=== PATIENT | male | born 1940 | race Caucasian/White ===

== ENCOUNTER 2016-11-13 07:11 | Inpatient (IN) | payer MEDICARE, OTHER ==
[~2016-11-13] VITALS: Ht 177.8 cm; Wt 79.8 kg
[2016-11-13] VITALS (13 sets, daily range): BP systolic 99–146; BP diastolic 47–93; PULSE 66–93; RESP 10–20; O2SAT 92–99
[2016-11-13] MEDS ORDERED: HYDROmorphone 1 mg/mL Inj IVPUSH ONE (07:40)
[2016-11-13] MEDS ORDERED: Ondansetron 2 mg/mL 2 mL Inj IVPUSH PRN ×3 (07:40→16:55)
[2016-11-13] MEDS ORDERED: HYDROmorphone 1 mg/mL Inj IVPUSH PRN ×2 (07:40→16:55)
--- NOTE | 2016-11-13 07:40 | ED.REPORT ---
HPI-General Illness Date of Service November 13, 2016 ED Provider: Leslie Ovalle MD The patient is a 76 year old male w/ a hx of emphysema and COPD who presents to the ED due to right hip pain after a ground level fall 5 hrs [employer]. The pt was in his room at the [facility] this morning. He got up to use the bathroom at 0300, stood up from the toilet, and fell onto the bathroom floor. He was unable to make it back to bed and laid on the floor for 3 hrs. He took his normal dosage of Eliquis this morning. He denies LOC, dizziness, and numbness. Nursing Notes Stated Complaint: FALL Chief Complaint: Extremity Trauma Nursing Notes Reviewed: Yes Allergies: Coded Allergies: No Known Allergies (Unverified , 11/13/16) General Time Seen by MD: 07:37 Chief Complaint Other (right hip pain) Hx Obtained From: Patient Arrived By: Ambulance Sudden in Onset?: Yes Onset Occurred: 5 - 8 hours ago Symptom Duration: Since onset Caused by: Fall on ground Location: : Hip right Quality: Painful Severity: Current: Mild Recent Healthcare: No recent doctor visit, No recent hospitalization Similar Sx Previous: No Past Medical History Past Medical History emphysema Reports: COPD Past Surgical History knee and shoulder replacement Review of Systems Full Review of Systems Musculoskeletal: Reports: Joint pain (right hip), Joint swelling Neurologic: Denies: Change LOC, Dizziness, Lightheaded, Numbness Complete sys rev & neg: except as marked. Physical Exam Vital Signs Vital Signs Date Time Temp Pulse Resp B/P Pulse Ox O2 Delivery O2 Flow Rate FiO2 11/13/16 10:03 84 17 111/47 99 Nasal Cannula 2 11/13/16 07:56 92 14 115/62 95 Room Air 11/13/16 07:14 36.8 93 10 124/59 94 Room Air Initial VS: Reviewed Head / Eyes: Atraumatic, Normocephalic, PERRL ENT: Mucous membranes moist, Conjunctiva normal Neck: Supple, Non-tender Respiratory: Breath sounds normal, Clear to auscultation, No respiratory distress Cardiovascular: Regular rate & rhythm, Heart sounds normal, Intact distal pulses Abdomen / GI: Soft, Non-tender, No guarding, No rebound, No distention Right Knee: Positive: Tenderness present... right knee surgery right leg is externally rotated and foreshortened good cap refill poor distal pulses bilaterally w/ chronic venous stasis changes Skin: Atraumatic, Warm, Dry no bruising Interpretation & Diagnostics Interpretation & Diagnostics: HIP/PELVIS X-RAY IMPRESSION: Comminuted right basicervical femoral neck fracture Dictated by: Andrew Velazquez M.D. on 11/13/2016 at 8:49 Approved by: Andrew Velazquez M.D. on 11/13/2016 at 8:51 Lab Results Interpretation Result Diagram: 11/13/16 0803 11/13/16 0803 Test 11/13/16 08:03 11/13/16 09:50 White Blood Count 15.2th/mm3 (3.8-10.1) Red Blood Count 4.63mil/mm3 (4.40-5.80) Hemoglobin 14.9g/dL (13.8-17.2) Hematocrit 42.6% (41.0-50.0) Mean Corpuscular Volume 92.0fL (81-100) Mean Corpuscular Hemoglobin 32.2pg (27.0-35.0) Mean Corpuscular Hemoglobin Concent 35.0% (32.0-37.0) Red Cell Distribution Width 13.3% (12.3-15.4) Platelet Count 249bil/L (150-400) Neutrophils (%) (Auto) 84.7% (40-74) Lymphocytes (%) (Auto) 6.4% (14-46) Monocytes (%) (Auto) 7.9% (4-12) Eosinophils (%) (Auto) 0.4% (0-5) Basophils (%) (Auto) 0.3% (0-3) Prothrombin Time 10.9sec (8.1-12.5) Prothromb Time International Ratio 1.02ratio Sodium Level 135mEq/L (134-144) Potassium Level 5.1mEq/L (3.5-5.2) Chloride Level 96mEq/L (97-108) Carbon Dioxide Level 24mmol/L (18-29) Blood Urea Nitrogen 9mg/dL (8-27) Creatinine 0.57mg/dL (0.76-1.27) Estimat Glomerular Filtration Rate 149mL/min (>59) Glucose Level 100mg/dL (60-99) Calcium Level 8.8mg/dL (8.5-10.1) Total Bilirubin 0.4mg/dL (0.0-1.2) Aspartate Amino Transf (AST/SGOT) 23U/L (0-50) Alanine Aminotransferase (ALT/SGPT) 18U/L (0-44) Alkaline Phosphatase 64U/L (25-160) Total Protein 6.8g/dL (6.4-8.4) Albumin 3.5g/dL (3.4-5.0) Alcohols 25mg/dL (0-10) Urine Color Yellow (YELLOW) Urine Appearance Hazy (CLEAR,HAZY) Urine pH 6.0 (5.0-8.0) Urine Specific [place] 1.010 (1.003-1.035) Urine Protein Negativemg/dL (NEG,TRACE) Urine Glucose (UA) Negativemg/dL (NEGATIVE) Urine Ketones Tracemg/dL (NEGATIVE) Urine Occult Blood Negative (NEGATIVE) Urine Nitrite Negative (NEGATIVE) Urine Bilirubin Negative (NEGATIVE) Urine Urobilinogen Normalmg/dL (NORMAL) Urine Leukocyte Esterase Negative (NEGATIVE) Urine RBC 0-2/hpf (0-2) Urine WBC 0-5/hpf (0-5) Urine Epithelial Cells Occasional/hpf (NONE-MOD) Urine Crystals None seen (NONE SEEN) Urine Bacteria None/hpf (NONE-FEW) Urine Hyaline Casts None/lpf (NONE) Urine Granular Casts None seen (NONE SEEN) Urine Waxy Casts None seen (NONE SEEN) Urine Red Blood Cell Casts None seen (NONE SEEN) Urine White Blood Cell Casts None seen (NONE SEEN) Urine Mucus None seen (None Seen) Urine Trichomonas None seen (NONE SEEN) Urine Yeast None (NONE SEEN) Urinalysis Comment None Urine Culture Reflexed Not indicated Hold Urine Received (Received) ECG Interpretation ECG Interpretation: Abnormal R-wave progression no comparison Time: 10:15 Interpreted by: ED physician Normal ECG Interpretation: Normal sinus rhythm (rate 81) X-Ray Chest Interpretation Chest Xray Interpretation: IMPRESSION: Chronic interstitial disease and scarring. No acute consolidation. Dictated by: Andrew Velazquez M.D. on 11/13/2016 at 8:51 Approved by: Andrew Velazquez M.D. on 11/13/2016 at 8:52 View: Portable Interpretation / Wet Read by: Interpret - Radiologist Re-Eval/Medical Decision Med Decision/Clinical Course 76-year-old gentleman at [facility] last night got up to void at 3 AM slipped and fell in the bathroom landing on his right hip. He was on the floor for about 3 hours and eventually called for his friend to help and an ambulance was called to help with transport. He is on Elaquis presumably for paroxysmal atrial fibrillation did take his dose this morning. No evidence of significant contusion or hematoma developing on his initial presentation. Care discussed with orthopedist and hospitalist including Elaquis dosing and dose taken today. Time of Eval: 09:36 Re-Evaluation/Progress Note: Pt rechecked. Informed of hip x-rat results showing femoral neck fracture and need for admission. Pt understands and agrees with plan. All questions addressed. Time of Eval: 10:02 Re-Evaluation/Progress Note: Pt is a smoker and requests a patch. Consultation #1: Referral / Consult Name: Feliz Moura MD Consulted With: Orthopedic Call Returned at: 09:08 Test Driver: Agrees with eval, Agrees with plan Note: Case discussed. Plan to admit. Consultation #2: Referral / Consult Name: Kali Ortiz MD Consulted With: Hospitalist Call Returned at: 10:03 Test Driver: Agrees with eval, Agrees with plan Note: Case discussed. Counseled Regarding: Diagnosis, Lab results, Need for admission Discharge & Departure Primary Impression: Hip fracture, right Encounter type: initial encounter Disposition: ADMITTED TO HOSPITAL Discharge Condition All VS Reviewed: Yes Condition: Stable Referrals: [facility] Scribe Attestation Portion of this note were transcribed by Frannie Mendoza. I, Dr. Leslie Ovalle, personally performed the history, physical exam, and medical decision-making: I reviewed and confirmed the accuracy for the information in the transcribed note. Signed by: jacky Siddiqui, 11/13/16 0900 copies to: [facility] Leslie Ovalle MD November 13, 2016 07:40 Frannie Mendoza November 13, 2016 08:02
[2016-11-13 08:13] LABS: BASOPHILS % (AUTO) 0.3 % (0-3); EOSINOPHILS % (AUTO) 0.4 % (0-5); MONOCYTES % (AUTO) 7.9 % (4-12); Mean Corpuscular Hemoglobin 32.2 pg (27.0-35.0); NEUTROPHILS % (AUTO) 84.7 % (40-74); Platelet Count 249 bil/L (150-400)
--- NOTE | 2016-11-13 08:52 | DRSVH ---
PROCEDURE: X-RAY PELVIS W/LAT HIP (RT) ([id number]) INDICATIONS: trauma/pain TECHNIQUE: AP pelvis with lateral view(s) of the right hip(s). COMPARISON: None. FINDINGS: Bones: Comminuted fracture at the base of the right femoral neck. Lower lumbar degenerative disc dise ase. Soft tissues: The visualized bowel gas pattern is normal. No suspicious soft tissue calcifications. There are surgical clips in the right inguinal region. Scattered vascular calcifications IMPRESSION: Comminuted right basicervical femoral neck fracture Dictated by: Andrew Velazquez M.D. on 11/13/2016 at 8:49 Approved by: Andrew Velazquez M.D. on 11/13/2016 at 8:51
--- NOTE | 2016-11-13 08:54 | DRSVH ---
PROCEDURE: X-RAY CHEST ONE VIEW ([id number]) INDICATIONS: FELL; PREOPERATIVE FOR HIP FRACTURE TECHNIQUE: One view of the chest was acquired. COMPARISON: None. FINDINGS: Surgical changes and devices: None. Lungs and pleura: No pleural effusions or pneumothorax. No acute consolidation. Widespread interstit ial changes, scarring and atelectasis. Presumed high density calcified granulomas projecting in the l catherine bases, and perihilar regions, and/or calcified hilar lymph nodes. Mediastinum: Mediastinal contours appear normal. Heart size is normal. Bones and chest wall: No suspicious bony lesions. Overlying soft tissues appear unremarkable. IMPRESSION: Chronic interstitial disease and scarring. No acute consolidation. Dictated by: Andrew Velazquez M.D. on 11/13/2016 at 8:51 Approved by: Andrew Velazquez M.D. on 11/13/2016 at 8:52
--- NOTE | 2016-11-13 10:39 | PCM.HPMED ---
Subjective Date of Service November 13, 2016 Primary Provider: Admitting Physician: Klai Ortiz MD Primary Care Physician: Arnoldo Franco MD Attending Physician: Kali Ortiz MD Chief Complaint: Right hip pain History of Present Illness: 76 year male, active smoker, etoh abuse, history of paroxysmal A. fib on Apixaban, BB, Augustin's esophagus, PVD, COPD p/w Rt hip pain after mechanical fall. pt lives in [place], came to [facility], had drinks etoh went to bed, then woke up 3am to go the bathroom, when patient stood up from toilet, fell on Rt side, noticed hip pain. denied chest pain, difficulty breathing, dizziness, nausea, vomiting, blurry vision, headache prior to fall. Although patient was foggy because of alcohol. Patient usually walks without any cane or walker, could walk up to1 block, or climbs 1flight of stairs but his legs became easily tired , not because of chest pain or SOB. Patient had bypass done by vascular surgeon in 2006 on right thigh, scheduled [place] [facility] [place]. Of note, pt is using Spiriva but no other inhalers, not on home O2, never hospitalized with COPD. ROS: pt denied fever, chills, SOB, chest pain, sick contacts urinary complaints , no n/v/c/d. ED VS 124/59, 93, 14-17, afebrile, 94% on RA, Review of Systems: Pertinent positives as noted in history of present illness. All other systems were reviewed and are negative Allergies Coded Allergies: No Known Allergies (Unverified , 11/13/16) Home Medications Atenolol daily Omeprazole daily Spiriva daily Liquids daily Apixaban daily PMH As described above in history of present illness Surgical History Right knee replacement in 2003 Left shoulder surgery in 2006 Facial benign tumor removal in 2004 vascular bypass Rt thigh in 2006 reported no periop complications Family History Father of heart attack in 70s Social History Hx Alcohol Use: Yes (couple drinks every day) Hx Tobacco Use: Yes (1/2 to 1ppid for 60yrs) Additional Information retired material handler loader in [place] Exam Vital Signs Vital Sign - Last Date Time Temp Pulse Resp B/P Pulse Ox O2 Delivery O2 Flow Rate FiO2 11/13/16 10:03 84 17 111/47 99 Nasal Cannula 2 11/13/16 07:14 36.8 Exam NAD, comfortably laying down on the bed no JVD, MMM, no LAD RRR, nl s1, s2 no mrg CTAB, no w,c S,ND,NT,normoactive BS+ warm, no edema, Rt leg pulse 1/2, cold, tenderness on Rt hip area Lab and Diagnostics Result Diagram: 11/13/16 0811/13/16 0803 X-Rays, CTs and MRIs PROCEDURE: X-RAY PELVIS W/LAT HIP (RT) ([id number]) INDICATIONS: trauma/pain TECHNIQUE: AP pelvis with lateral view(s) of the right hip(s). COMPARISON: None. FINDINGS: Bones: Comminuted fracture at the base of the right femoral neck. Lower lumbar degenerative disc disease. Soft tissues: The visualized bowel gas pattern is normal. No suspicious soft tissue calcifications. There are surgical clips in the right inguinal region. Scattered vascular calcifications IMPRESSION: Comminuted right basicervical femoral neck fracture Dictated by: Andrew Velazquez M.D. on 11/13/2016 at 8:49 Approved by: Andrew Velazquez M.D. on 11/13/2016 at 8:51 PROCEDURE: X-RAY CHEST ONE VIEW ([id number]) INDICATIONS: FELL; PREOPERATIVE FOR HIP FRACTURE TECHNIQUE: One view of the chest was acquired. COMPARISON: None. FINDINGS: Surgical changes and devices: None. Lungs and pleura: No pleural effusions or pneumothorax. No acute consolidation. Widespread interstitial changes, scarring and atelectasis. Presumed high density calcified granulomas projecting in the lung bases, and perihilar regions, and/or calcified hilar lymph nodes. Mediastinum: Mediastinal contours appear normal. Heart size is normal. Bones and chest wall: No suspicious bony lesions. Overlying soft tissues appear unremarkable. IMPRESSION: Chronic interstitial disease and scarring. No acute consolidation. Dictated by: Andrew Velazquez M.D. on 11/13/2016 at 8:51 Approved by: Andrew Velazquez M.D. on 11/13/2016 at 8:52 12-lead ECG NSR Assessment & Plan Acute, active acute Rt hip fx, in the setting of ground level mechanical fall, hx didn't suggest syncope, although pt was intoxicated. -preop assessment: intermediate risks surgery, RCRI0,0.4% risks of major cardiac event, no active cardiac condition which requires attention preoperatively, benefits of surgery seem greater than risks. Defer surgery team to timing of surgery given bleeding risk on Eliquis. -dvt ppx, pain management per orthopedic postoperatively -dilaudid prn for pain, zofran prn for n/v -trends h/h postop chronic etoh abuse, intoxicated, etoh level 25, no signs of WD, denied major WD in the past. -monitor for WD, CIWA protocol ordered Chronic, stable Paroxysmal afib, held Apixaban, resume after surgery once bleeding risks is minimal, continue atenolol after med rec, telemetry Augustin's esophagus, continue PPI active smoker, nicotine patch COPD, seems stable, will use O2 supplement as needed post-op, target SpO2>92%, -continue Spiriva, albuterol q2h prn dispo:Patient will be admitted with inpatient status with expectation of inpatient therapy for more than 2 midnights diet:NPO prior to surgery dvt ppx:SCD Full code, verbally confirmed with patient Time spent 35min Kali Ortiz MD November 13, 2016 10:38
[2016-11-13] MEDS ORDERED: Albuterol 2.5 mg/3 mL Inhalation Solution NEB PRN (10:50)
[2016-11-13 11:13] LABS: INR 1.02 ratio
[2016-11-13 11:13] LABS: APPEARANCE,URINE HAZY (CLEAR,HAZY); COLOR,URINE YELLOW (YELLOW); OCCULT BLOOD,URINE NEGATIVE (NEGATIVE); UROBILINOGEN,URINE NORMAL (NORMAL)
[2016-11-13] MEDS: HYDROmorphone 1 mg/mL Inj IVPUSH PRN ×2 (11:27→20:04)
--- NOTE | 2016-11-13 11:30 | NUR ---
Admit Patient was admitted into room 1005 from ED via gurney and transferred to bed with total assistance and slide board use. 3L O2 via nasal canula titrated down to 2L and placed on a continuous pulse ox. Saline lock present. RLE shorter than LLE and right foot pointed outwards.A&OX3 and able to answer all admission questions. Admission completed except for med rec, awaiting call back from patient's pharmacy. Patient stating pain at a 3/10 without movement but with movement 9/10. Continuing to monitor O2 needs, pain, and CIWA scores.
[2016-11-13] MEDS: Tiotropium 18mcg/Cap 5 Capsule Inhaler Kit INHALATION SCH (13:00)
--- NOTE | 2016-11-13 13:38 | PCM.CONORT ---
Subjective Date of Surgery: November 13, 2016 Surgeon Admitting Provider:Kali Ortiz MD Attending Provider:Kali Ortiz MD Primary Care Physician:Arnoldo Franco MD Other Provider: Reason for Consultation: right hip pain Allergy Allergies: Coded Allergies: No Known Allergies (Unverified , 11/13/16) History History of ENT Problems?: Yes HEENT History: Positive for:: Glaucoma Denies:: Cataracts Dysphagia Sinus Problem Denture Type: None Full- Lower Teeth Condition: Within Normal Limits Other HEENT Pertinent History: macular degenertion Hx of Heart Problems?: Yes Cardiovascular History: Positive for:: Irregular Heartbeat Denies:: Cardiac Surgery Chest Pain Congestive Heart Failure Edema Heart Murmur Hypertension Pacemaker Thrombophlebitis Other Cardiac History: vascular bypass in RLE Hx of Respiratory Problem?: Yes Respiratory History: Positive for:: COPD Emphysema Denies:: Asthma Chest Surgery Dyspnea Hemoptysis Pneumonia Tuberculosis Hx Neurologic Problems?: No Neurological History: Denies:: Alzheimer's Disease CVA Dementia Dizziness Headaches Parkinson's Disease Seizures Hx of GI Problems?: Yes Other GI Pertinent History: Augustin's esophagus Hx of Problems?: No Genitourinary History: Denies:: HX of Hemodialysis Kidney Stones Urinary Tract Infection HX of Peritoneal Dialysis: No Male Hx: Denies:: Prostate Problems Scrotal Mass Testicular Surgery Hx Musculoskeletal Problems?: Yes Musculoskeletal History: Positive for:: Back Injury (yrs ago) Joint Replacement (R knee, L shoulder) Denies:: Musculoskeletal Trauma Other History/Comment Reinaldo Rhodes is a 76-year-old male patient who presents ER and an orthopedic consult evaluation of their right hip was requested. He is an active smoker, hx of etoh abuse, history of paroxysmal A. fib on Apixaban, BB, Augustin's esophagus, PVD, COPD. Pt lives in [place], came to the [facility], had drinks of etoh went to bed, then woke up 3am to go the bathroom, when patient stood up from toilet, and fell from standing. The patient states that their pain is a sharp in nature and mild/moderate in severity localized in the hip and groin without radiation. This has been progressing over the past several hours after the aforementioned history. Moreover, the pain is exacerbated by activities, especially with any movement. Rest seems to improve the symptoms. Patient reports associated symptoms no clicking, some stiffness, moderate swelling, with weakness. Previous treatment: none. There is no reports numbness, tingling , or weakness to the affected distal lower extremity. There is no known history of hip problems as a child/adolescent such as SCFE, Perthes, dysplasia, OI, or ligamentous laxity. The patient denies any fever, chills, nausea, vomiting, chest pain, shortness of breath, or calf tenderness. Work/hobbies/ sports include: Currently lives alone, no history of previous hip pain Hx of Psycho/Social Problems?: No Psycho Social History: Denies:: Anxiety Bipolar Disorder Hx Depression Suicide Attempt Hx Surgeries?: Yes (knee/shoulder replacements) Hx Any Other Health Problems?: No Other History: Denies:: Cancer Hospitalization (a.Fib) Thyroid Disease History Blood Transfusions: Positive for:: Accept Blood Products? Denies:: Blood Transfuse Reaction Blood Transfusions Hx Diabetes: No Hx Alcohol Use: YesAlcoholic Drinks Per Day: 2-5 drinks of hard liquor/dayHx Substance Use: NoHave You Smoked inLast 12 mo: YesApprox How Many Cigarettes/ day: 20-30 cigarettes Objective Exam Vital Signs & I/O Vital Sign- Last 8 Hours Date Time Temp Pulse Resp B/P Pulse Ox O2 Delivery O2 Flow Rate FiO2 11/13/16 12:41 74 18 96 Nasal Cannula 2.00 11/13/16 11:23 36.8 84 20 146/93 98 Nasal Cannula 2.00 11/13/16 11:20 74 11/13/16 10:03 84 17 111/47 99 Nasal Cannula 2 11/13/16 07:56 92 14 115/62 95 Room Air 11/13/16 07:14 36.8 93 10 124/59 94 Room Air Lab & Micro Results Laboratory Tests Test 11/13/16 08:03 11/13/16 09:50 White Blood Count 15.2th/mm3 (3.8-10.1) Red Blood Count 4.63mil/mm3 (4.40-5.80) Hemoglobin 14.9g/dL (13.8-17.2) Hematocrit 42.6% (41.0-50.0) Mean Corpuscular Volume 92.0fL (81-100) Mean Corpuscular Hemoglobin 32.2pg (27.0-35.0) Mean Corpuscular Hemoglobin Concent 35.0% (32.0-37.0) Red Cell Distribution Width 13.3% (12.3-15.4) Platelet Count 249bil/L (150-400) Neutrophils (%) (Auto) 84.7% (40-74) Lymphocytes (%) (Auto) 6.4% (14-46) Monocytes (%) (Auto) 7.9% (4-12) Eosinophils (%) (Auto) 0.4% (0-5) Basophils (%) (Auto) 0.3% (0-3) Prothrombin Time 10.9sec (8.1-12.5) Prothromb Time International Ratio 1.02ratio Sodium Level 135mEq/L (134-144) Potassium Level 5.1mEq/L (3.5-5.2) Chloride Level 96mEq/L (97-108) Carbon Dioxide Level 24mmol/L (18-29) Blood Urea Nitrogen 9mg/dL (8-27) Creatinine 0.57mg/dL (0.76-1.27) Estimat Glomerular Filtration Rate 149mL/min (>59) Glucose Level 100mg/dL (60-99) Calcium Level 8.8mg/dL (8.5-10.1) Total Bilirubin 0.4mg/dL (0.0-1.2) Aspartate Amino Transf (AST/SGOT) 23U/L (0-50) Alanine Aminotransferase (ALT/SGPT) 18U/L (0-44) Alkaline Phosphatase 64U/L (25-160) Total Protein 6.8g/dL (6.4-8.4) Albumin 3.5g/dL (3.4-5.0) Alcohols 25mg/dL (0-10) Urine Color Yellow (YELLOW) Urine Appearance Hazy (CLEAR,HAZY) Urine pH 6.0 (5.0-8.0) Urine Specific [place] 1.010 (1.003-1.035) Urine Protein Negativemg/dL (NEG,TRACE) Urine Glucose (UA) Negativemg/dL (NEGATIVE) Urine Ketones Tracemg/dL (NEGATIVE) Urine Occult Blood Negative (NEGATIVE) Urine Nitrite Negative (NEGATIVE) Urine Bilirubin Negative (NEGATIVE) Urine Urobilinogen Normalmg/dL (NORMAL) Urine Leukocyte Esterase Negative (NEGATIVE) Urine RBC 0-2/hpf (0-2) Urine WBC 0-5/hpf (0-5) Urine Epithelial Cells Occasional/hpf (NONE-MOD) Urine Crystals None seen (NONE SEEN) Urine Bacteria None/hpf (NONE-FEW) Urine Hyaline Casts None/lpf (NONE) Urine Granular Casts None seen (NONE SEEN) Urine Waxy Casts None seen (NONE SEEN) Urine Red Blood Cell Casts None seen (NONE SEEN) Urine White Blood Cell Casts None seen (NONE SEEN) Urine Mucus None seen (None Seen) Urine Trichomonas None seen (NONE SEEN) Urine Yeast None (NONE SEEN) Urinalysis Comment None Urine Culture Reflexed Not indicated Hold Urine Received (Received) Result Diagram: 11/13/1680211/13/16802 Review of Systems: Constitutional: Negative, except as otherwise mentioned in the history above. Ophthalmologic: Negative, except as otherwise mentioned in the history above. Cardiovascular: Negative, except as otherwise mentioned in the history above. Respiratory: Negative, except as otherwise mentioned in the history above. Gastrointestinal: Negative, except as otherwise mentioned in the history above. Genitourinary: Negative, except as otherwise mentioned in the history above. Musculoskeletal: Negative, except as otherwise mentioned in the history above. Neurological: Negative, except as otherwise mentioned in the history above. Psychiatric: Negative, except as otherwise mentioned in the history above. Hematologic/Lymphatic: Negative, except as otherwise mentioned in the history above. Allergic/Immunologic: Negative, except as otherwise mentioned in the history above. H&P Surgical Exam Exam Musculoskeletal: CONST: WD,WN, NAD, A+OX3 OCULAR: EOMI, no conjunctivitis/icterus ENT: no deformities, scars or lesions CARDIAC: Pulse is regular. No cyanosis,clubbing,edema RESP: regular,unlabored MSK: normal light touch SPN/DPN/TN distributions. 5/5 DF/PF/Inv/Ev, 2+ DP Right HIP - scars.+ swelling, - erythema - atrophy or asymmetry. Shortened, externally rotated ROM logroll-++ painful Strength deferred - calf tenderness thigh circ-equal, Signs deferred Additional Information Two-view x-ray the right hip demonstrate a displaced intertrochanteric right hip fracture H&P Preop Plan Impression Right displaced intertrochanteric hip fracture Problems: Risks & Benefits * We have reviewed the risks and benefits as well as the alternatives to surgery. All questions were answered to the patient's satisfaction and a counseling note to that effect. The patient has provided informed consent. * I have counseled the patient regarding the deleterious effects that smoking during the perioperative period can have upon wound healing, infection rates, and the overall rate of complications. Plan Nonweightbearing right lower extremity Nothing by mouth for surgery today Consent obtained for closed reduction intramedullary nail fixation DVT prophylaxis with SCDs and KOKO hose Resume chemical DVT prophylaxis after surgery Continue medical management per primary Medical optimization appreciated Please call questions Please keep the affected extremity elevated when possible. All questions and concerns were addressed. Feliz Moura MD November 13, 2016 13:38
[2016-11-13] MEDS ORDERED: Phenylephrine/NS-PF 100 mCg/mL 5 mL Syringe IVPUSH ONE (14:35)
[2016-11-13] MEDS ORDERED: EPHEDrine/NS 5 mg/mL 5 mL Syringe ONE (14:35)
[2016-11-13] MEDS ORDERED: fentaNYL-PF 50 mCg/mL 2 mL Inj ONE (14:35)
[2016-11-13] MEDS ORDERED: Propofol 10,000 mCg/mL 20 mL Inj ONE (14:35)
--- NOTE | 2016-11-13 15:31 | PCM.HPANE ---
Patient Data Surgeon Admitting Provider:Kali Ortiz MD Attending Provider:Kali Ortiz MD Primary Care Physician:Arnoldo Franco MD Other Provider: Reason for Visit R Hip Fx R HIP FX Ht/WT & BMI Height (Feet): 5 Height (Inches): 10.00 Weight (Kilograms): 79.800 Body Mass Index 25.19 Allergies Coded Allergies: No Known Allergies (Unverified , 11/13/16) Past Anesthesia History Anesthesia History: Denies:: Abnormal Airway, Anesthesia Reactions, Difficult Intubation, Fam Anesthesia Reaction, Fam Malignant Hypertherm, Malignant Hyperthermia Diabetes History Hx Diabetes?: No MRSA MRSA: No History History of ENT Problems?: Yes HEENT History: Positive for:: Glaucoma Denies:: Cataracts Dysphagia Sinus Problem Denture Type: None Full- Lower Teeth Condition: Within Normal Limits Other HEENT Pertinent History: macular degenertion Hx of Heart Problems?: Yes Cardiovascular History: Positive for:: Irregular Heartbeat Denies:: Cardiac Surgery Chest Pain Congestive Heart Failure Edema Heart Murmur Hypertension Pacemaker Thrombophlebitis Other Cardiac History: vascular bypass in RLE Hx of Respiratory Problem?: Yes Respiratory History: Positive for:: COPD Emphysema Denies:: Asthma Chest Surgery Dyspnea Hemoptysis Pneumonia Tuberculosis Hx Neurologic Problems?: No Neurological History: Denies:: Alzheimer's Disease CVA Dementia Dizziness Headaches Parkinson's Disease Seizures Hx of GI Problems?: Yes Other GI Pertinent History: Augustin's esophagus Hx of Problems?: No Genitourinary History: Denies:: HX of Hemodialysis Kidney Stones Urinary Tract Infection HX of Peritoneal Dialysis: No Male Hx: Denies:: Prostate Problems Scrotal Mass Testicular Surgery Hx Musculoskeletal Problems?: Yes Musculoskeletal History: Positive for:: Back Injury (yrs ago) Joint Replacement (R knee, L shoulder) Denies:: Musculoskeletal Trauma Hx of Psycho/Social Problems?: No Psycho Social History: Denies:: Anxiety Bipolar Disorder Hx Depression Suicide Attempt Hx Surgeries?: Yes (knee/shoulder replacements) Hx Any Other Health Problems?: No Other History: Denies:: Cancer Hospitalization (a.Fib) Thyroid Disease History Blood Transfusions: Positive for:: Accept Blood Products? Denies:: Blood Transfuse Reaction Blood Transfusions Hx Diabetes: No Hx Alcohol Use: YesAlcoholic Drinks Per Day: 2-5 drinks of hard liquor/dayHx Substance Use: NoHave You Smoked inLast 12 mo: YesApprox How Many Cigarettes/ day: 20-30 cigarettes Stop/Bang Treated for Sleep Apnea?: No Do You Have a CPAP Machine?: No S-Snoring: Do You Snore Loudly: No T-Tired: feel tired, fatigued: No O-Obsered: Observed not breath: No P-Blood Pressure: treated: No B- Body Mass Index > 35 kg/m2: No A- Age over 50: Yes N- Neck Large Circumference: No G- Gender Male: Yes CORTEZ Total Score: 1 Risk Assessment Category Category 1A: Patient has history of documented sleep apnea, and HAS NOT received any narcotic, sedative or anesthesia administration during this stay. Category 1B: Patient has history of documented sleep apnea, and HAS received any narcotic , sedative or anesthesia administration during this stay Category 2: Patient has SUSPECTED Obstructive Sleep Apnea, and HAS received any narcotic , sedative or anesthesia administration during this stay. Category 3: Patient has SUSPECTED Obstructive Sleep Apnea and HAS NOT received narcotic, sedative or anesthesia administration during this stay. Category 4: Outpatient in Procedural Areas with known sleep apnea or who screen positive for High Risk via the STOP/BANG questionnaire. Exam Exam Vital Signs Vital Signs Date Time Temp Pulse Resp B/P Pulse Ox O2 Delivery O2 Flow Rate FiO2 11/13/16 12:41 74 18 96 Nasal Cannula 2.00 11/13/16 11:23 36.8 84 20 146/93 98 Nasal Cannula 2.00 11/13/16 11:20 74 11/13/16 10:03 84 17 111/47 99 Nasal Cannula 2 11/13/16 07:56 92 14 115/62 95 Room Air General Appearance: Alert, Oriented X3, Cooperative, Moderate Distress HEENT/AIRWAY: MP 2, Neck Movement (from), Mouth Opening (WNL, missing teeth) Lungs: Coarse Heart: Exam Unremarkable Meds/Labs/Diagnostics Admission Meds Current Medications Hydromorphone HCl (Dilaudid Inj) 1 mg Q15MIN ONCE IVPUSH Last administered on 11/13/16 08:05; Start 11/13/16 at 07:40; Stop 11/13/16 at 07:41; Status DC Nicotine (Nicoderm 21 mg/ 24 Hr Patch) 1 patch ONCE ONCE TOPICAL Last administered on 11/13/16 10:24; Start 11/13/16 at 10:05; Stop 11/13/16 at 10:06 ; Status DC Labs Test 11/13/16 08:03 11/13/16 09:50 White Blood Count 15.2th/mm3 (3.8-10.1) Red Blood Count 4.63mil/mm3 (4.40-5.80) Hemoglobin 14.9g/dL (13.8-17.2) Hematocrit 42.6% (41.0-50.0) Mean Corpuscular Volume 92.0fL (81-100) Mean Corpuscular Hemoglobin 32.2pg (27.0-35.0) Mean Corpuscular Hemoglobin Concent 35.0% (32.0-37.0) Red Cell Distribution Width 13.3% (12.3-15.4) Platelet Count 249bil/L (150-400) Neutrophils (%) (Auto) 84.7% (40-74) Lymphocytes (%) (Auto) 6.4% (14-46) Monocytes (%) (Auto) 7.9% (4-12) Eosinophils (%) (Auto) 0.4% (0-5) Basophils (%) (Auto) 0.3% (0-3) Prothrombin Time 10.9sec (8.1-12.5) Prothromb Time International Ratio 1.02ratio Sodium Level 135mEq/L (134-144) Potassium Level 5.1mEq/L (3.5-5.2) Chloride Level 96mEq/L (97-108) Carbon Dioxide Level 24mmol/L (18-29) Blood Urea Nitrogen 9mg/dL (8-27) Creatinine 0.57mg/dL (0.76-1.27) Estimat Glomerular Filtration Rate 149mL/min (>59) Glucose Level 100mg/dL (60-99) Calcium Level 8.8mg/dL (8.5-10.1) Total Bilirubin 0.4mg/dL (0.0-1.2) Aspartate Amino Transf (AST/SGOT) 23U/L (0-50) Alanine Aminotransferase (ALT/SGPT) 18U/L (0-44) Alkaline Phosphatase 64U/L (25-160) Total Protein 6.8g/dL (6.4-8.4) Albumin 3.5g/dL (3.4-5.0) Alcohols 25mg/dL (0-10) Urine Color Yellow (YELLOW) Urine Appearance Hazy (CLEAR,HAZY) Urine pH 6.0 (5.0-8.0) Urine Specific [place] 1.010 (1.003-1.035) Urine Protein Negativemg/dL (NEG,TRACE) Urine Glucose (UA) Negativemg/dL (NEGATIVE) Urine Ketones Tracemg/dL (NEGATIVE) Urine Occult Blood Negative (NEGATIVE) Urine Nitrite Negative (NEGATIVE) Urine Bilirubin Negative (NEGATIVE) Urine Urobilinogen Normalmg/dL (NORMAL) Urine Leukocyte Esterase Negative (NEGATIVE) Urine RBC 0-2/hpf (0-2) Urine WBC 0-5/hpf (0-5) Urine Epithelial Cells Occasional/hpf (NONE-MOD) Urine Crystals None seen (NONE SEEN) Urine Bacteria None/hpf (NONE-FEW) Urine Hyaline Casts None/lpf (NONE) Urine Granular Casts None seen (NONE SEEN) Urine Waxy Casts None seen (NONE SEEN) Urine Red Blood Cell Casts None seen (NONE SEEN) Urine White Blood Cell Casts None seen (NONE SEEN) Urine Mucus None seen (None Seen) Urine Trichomonas None seen (NONE SEEN) Urine Yeast None (NONE SEEN) Urinalysis Comment None Urine Culture Reflexed Not indicated Hold Urine Received (Received) Plan Impression Patient chart reviewed, patient interviewed and anesthestic plan with risks, benefits, and alternatives discussed, and informed consent obtained. ASA Physical Status: ASA2 Mod Systemic Disease Anesthetic Plan: GA Bene/Risks/Altern/Consents: Yes HP Complete Prior to Induction: Yes Other Patient given Eliquis this am. Surgeon says this hip needs to be fixed today. In addition to the usual risks I also Explained risk to patient of DVT of not treating the hip soon vs bleeding post operatively. Questions answered. Patient wishes to proceed. Kaleb Fernández MD November 13, 2016 15:31
--- NOTE | 2016-11-13 15:55 | NUR ---
To OR Patient to OR in bed. Telemtry taken off, SCD placed on LLE, and patient voided before leaving floor.
[2016-11-13] MEDS ORDERED: Lactated Ringer's 1,000 ML IV ONE ×2 (15:56→16:00)
[2016-11-13] MEDS ORDERED: Acetaminophen IV 1,000 MG in IV Premix 1 EACH IV ONE (16:00)
[2016-11-13] MEDS ORDERED: CeFAZolin Inj 2 gm / 50mL D5W IV ONE (16:00)
--- NOTE | 2016-11-13 16:13 | PCM.ORTHOP ---
Orthopedic Operative Report Date of Service: November 13, 2016 Pre Operative Diagnosis right displaced intertrochanteric hip fracture Post Operative Diagnosis right displaced intertrochanteric hip fracture Procedure right hip closed reduction, intramedullary nail fixation Surgeon Surgeon: Feliz Moura MD Assistants: None Indication for Procedure right IT hip fracture Findings per dictation Details of Procedure Implant: Synthes nail 94Y191 deg, 170mm TFA, 100mm lag screw, 38mm, 5.0mm locking screw Indications: Gill Rhodes is a 76-year-old male status-post a right intertrochanteric hip fracture several hours ago. As he is on elliquis, a 10a inhibitor, anesthesia requested expedited procedure given his history of heart issues, COPD, smoking history, EtOH abuse as well. The risks versus benefits of open reduction and internal fixation were discussed with the patient in detail. The patient voiced understanding of the risks and agreed to proceed. The risks discussed were pain, bleeding, infection, damage to neurovascular structures, failure of procedure, need for further procedures, loss of limb function, loss of limb, heart attack, stroke, and . Verbal and written consent were obtained. Description of Operation: The patient was brought to the operating room. Patient name and surgical site were confirmed. Preoperative antibiotics were given. General anesthesia was administered. The patient was placed supine on the fracture table in the standard fashion. All bony prominences were well padded. Traction was applied to the operative leg and the fracture was closed reduced under C-arm guidance. The leg and hip were then prepped and draped in the usual sterile fashion. A small longitudinal incision was made proximal to the greater trochanter. Subcutaneous dissection was bluntly performed down to the tip of the greater trochanter. A 3.2 mm guide pin was then placed through the tip of the greater trochanter and into the femoral canal under fluoroscopic guidance. This was checked in both AP and lateral views. This pin was then over-reamed with a 17 mm reamer. The nail implant was loaded onto the insertion jig and then gently malleted into position over the guide wire. The fracture was well reduced as confirmed with C-arm in AP and lateral views. The guide was removed. The guide pin for the hip screw was inserted to a point within 25 mm tip-to-apex distance on AP and lateral views. The size was measured and a hip screw size was selected along with a compression screw. The lateral cortex was drilled for the compression screw. The guide pin was then overdrilled and the hip screw was inserted with clear compression at the fracture once the compression screw inserted and engaged. The traction was removed and orthogonal views with fluoroscopy determined reduction of our fracture with appropriate placement of hip screw centered with a tip-to-apex distance less than 25 mm. The distal interlocking screw was then inserted in the standard fashion using the jig. All wounds were thoroughly irrigated by bulb irrigation. Hemostasis was obtained with electrocautery. The fascia was closed with 0 Vicryl suture. The subcutaneous space was closed with interrupted 2-0 Vicryl suture. The skin was closed with fatemeh. Hard copy radiographs confirmed adequate reduction and placement of hardware. The patient was extubated without difficulty and transferred to the PACU in stable condition. I was present and scrubbed for the entire procedure. Description of Findings: Right displaced intertrochanteric fracture Specimens Obtained: none You may WBAT. Keep your wound clean, dry and intact. We will change your dressing in 2 days and continue daily dressing changes PT/OT will be ordered. Return to clinic in 2 weeks with me with 2 view x-rays and staple/suture removal with Steri-Strips application. You may get your wound wet at that time. You will follow-up with me in 4 weeks thereafter with additional x-rays 2 views. Continue your blood thinner starting tomorrow morning. Please keep the affected extremity elevated when possible. You may use ice and/or heat as needed for comfort. All questions and concerns were addressed. Please feel free to call with any further questions, comments, and/or concerns. Grafts, Implants: Implants-See Implant Record Complications There were no periprocedural complications identified. Condition Stable Anesthetic Administered: GA Catheters: None Output, Estimated Blood Loss: 15 Blood Admin during surgery: No Surgical Cast or Splint: Other Surgical Specimen Removed: No Specimen sent to Pathology: No copies to: Feliz Moura MD, Christopher L MD November 13, 2016 16:13 Surgical Cast or Splint: Other Surgical Specimen Removed: No Specimen sent to Pathology: No copies to: Feliz Moura MD, Christopher L MD November 13, 2016 16:13
[2016-11-13] MEDS ORDERED: Ropivacaine-PF 0.5% 30 mL Inj INFILTRATE ONE (16:32)
[2016-11-13] MEDS ORDERED: Lactated Ringer's 1,000 ML IV SCH (16:51)
[2016-11-13] MEDS ORDERED: Lactated Ringer's 500 ML IV PRN (16:51)
[2016-11-13] MEDS ORDERED: Atropine 0.4 mg/mL Inj IVPUSH PRN (16:55)
[2016-11-13] MEDS ORDERED: EPHEDrine Sulfate 50 mg/mL Inj IVPUSH PRN (16:55)
[2016-11-13] MEDS ORDERED: Phenylephrine 10,000 mCg/mL Inj IVPUSH PRN (16:55)
[2016-11-13] MEDS ORDERED: Albuterol-Ipratropium 3 mL Inhalation Solution NEB PRN (16:55)
[2016-11-13] MEDS ORDERED: Labetalol 5 mg/mL 4 mL Inj IV PRN (16:55)
[2016-11-13] MEDS ORDERED: Dexamethasone 4 mg/mL Inj IVPUSH PRN (16:55)
[2016-11-13] MEDS ORDERED: hydrALAZINE 20 mg/mL Inj IVPUSH PRN (16:55)
[2016-11-13] MEDS: fentaNYL-PF 50 mCg/mL 2 mL Inj IVPUSH PRN ×4 (17:46→18:10)
[2016-11-13] MEDS ORDERED: LATA2.5D5 BOTH_EYES (18:35)
[2016-11-13] MEDS ORDERED: OMEP20CA11 PO (18:35)
[2016-11-13] MEDS ORDERED: APIX5TAB PO (18:35)
[2016-11-13] MEDS ORDERED: TIOT18CA3 IH (18:35)
[2016-11-13] MEDS ORDERED: SIMV20TA4 PO (18:35)
[2016-11-13] MEDS ORDERED: ATEN25TA PO (18:35)
--- NOTE | 2016-11-13 18:45 | NUR ---
Med Rec Med rec was completed with patient list from pharmacy and verified with patient. Paged MD, notifying it was complete.
--- NOTE | 2016-11-13 19:19 | NUR ---
Back from OR Patient back from OR in bed stating a 2/10 pain. Patient was on 2L NC with LR running. SCDs, CPO2, and Telemetry placed on patient. Dressing clean, dry, and intact, pedal pulses present, feet warm, capillary refill less than 3 seconds, denies tingling,numbness, chest pain, N/V. Patient reoriented to room, call light in reach, new LR IV fluids started. Patient is tolerating oral intake.
--- NOTE | 2016-11-13 20:10 | DRSVH ---
PROCEDURE: X-RAY RIGHT FEMUR, TWO VIEWS ([id number]) INDICATIONS: POST OP ORIF RIGHT HIP TECHNIQUE: 2 views of the femur were acquired. COMPARISON: [facility], CR, XR PELVIS W LATERAL HIP RT, 11/13/2016, 7:37. FINDINGS: Bones: Postsurgical changes compatible with ORIF of intertrochanteric right hip fracture noted. The re is anatomic alignment following placement of intramedullary cal and dynamic compression screw. In cidental note made of right knee arthroplasty. Soft tissues: Vascular calcifications noted. Multiple vascular surgical clips noted. IMPRESSION: Anatomic alignment following ORIF of right hip fracture. Dictated by: Denise Perez MD, PhD on 11/13/2016 at 20:07 Approved by: Denise Perez MD, PhD on 11/13/2016 at 20:08
[2016-11-14] VITALS (7 sets, daily range): BP systolic 97–117; BP diastolic 61–68; PULSE 67–113; RESP 16–20; O2SAT 92–99
[2016-11-14] MEDS: HYDROmorphone 1 mg/mL Inj IVPUSH PRN ×3 (00:16→08:37)
--- NOTE | 2016-11-14 02:05 | NUR ---
Pain/Activity On initial assessment, patient stated pain at a 7/10 on pain scale. Dilaudid 1mg IVP administered. Right hip dressing appeared CDI. CWA score 0. Continuous pulse ox alarming constantly. Reminded patient to deep breathe and cough. VSS. Call light within reach. Care continues
[2016-11-14 05:21] LABS: BASOPHILS % (AUTO) 0.3 % (0-3); EOSINOPHILS % (AUTO) 2.1 % (0-5); MONOCYTES % (AUTO) 12.5 % (4-12); Mean Corpuscular Hemoglobin 31.7 pg (27.0-35.0); Mean Corpuscular Volume 94.6 fL (81-100); NEUTROPHILS % (AUTO) 71.9 % (40-74); Platelet Count 203 bil/L (150-400)
--- NOTE | 2016-11-14 08:47 | PCM.PNORTH ---
Subjective Date of Service: November 14, 2016 Visit Information: Reason for Visit R Hip Fx Surgery/Surgery Date Post-Op Day # Date of Admission: November 13, 2016 at 10:04 Hospital Day # Subjective Outpatient awake and alert and sitting up in bed. No complaints of pain at this time. Discussed participation with physical therapy and encouraged activity today. Patient relates that he does have an caregiver here in his house and will have help at home when he returns there. Postop General: No Complaints, No Shortness of Breath, No Chest Pain Pain Management: PO, IV Push Objective Exam Objective Alert and oriented 3 and pleasant. Interoperative dressing is clean dry and intact. Calf and thigh are soft and nontender. Toe wiggle and sensation are intact in right lower extremity distally. [place] absent No gait as of this note. Vital Signs and I/O Vital Sign - Last Date Time Temp Pulse Resp B/P Pulse Ox O2 Delivery O2 Flow Rate FiO2 11/14/16 08:12 83 18 95 Nasal Cannula 1.00 11/14/16 05:40 36.8 97/61 Intake and Output 11/13/16 11/13/16 11/14/16 Cumulative From/Thru 15:00 23:00 07:00 11/13/16 07:14 - 11/14/16 06:27 Intake Total 1200 ml 1336 ml 2536 ml Output Total 200 ml 705 ml 905 ml Balance -200 ml 495 ml 1336 ml 1631 ml Intake Oral 200 ml 200 ml IV Total 1000 ml 1336 ml 2336 ml Output Urine Total 200 ml 675 ml 875 ml Estimated Blood Loss 30 ml 30 ml # Voids 3 3 Lab & Micro Results Laboratory Tests Test 11/13/16 09:50 11/14/16 04:50 11/14/16 08:00 Urine Color Yellow (YELLOW) Urine Appearance Hazy (CLEAR,HAZY) Urine pH 6.0 (5.0-8.0) Urine Specific [place] 1.010 (1.003-1.035) Urine Protein Negativemg/dL (NEG,TRACE) Urine Glucose (UA) Negativemg/dL (NEGATIVE) Urine Ketones Tracemg/dL (NEGATIVE) Urine Occult Blood Negative (NEGATIVE) Urine Nitrite Negative (NEGATIVE) Urine Bilirubin Negative (NEGATIVE) Urine Urobilinogen Normalmg/dL (NORMAL) Urine Leukocyte Esterase Negative (NEGATIVE) Urine RBC 0-2/hpf (0-2) Urine WBC 0-5/hpf (0-5) Urine Epithelial Cells Occasional/hpf (NONE-MOD) Urine Crystals None seen (NONE SEEN) Urine Bacteria None/hpf (NONE-FEW) Urine Hyaline Casts None/lpf (NONE) Urine Granular Casts None seen (NONE SEEN) Urine Waxy Casts None seen (NONE SEEN) Urine Red Blood Cell Casts None seen (NONE SEEN) Urine White Blood Cell Casts None seen (NONE SEEN) Urine Mucus None seen (None Seen) Urine Trichomonas None seen (NONE SEEN) Urine Yeast None (NONE SEEN) Urinalysis Comment None Urine Culture Reflexed Not indicated Hold Urine Received (Received) White Blood Count 9.4th/mm3 (3.8-10.1) Red Blood Count 3.88mil/mm3 (4.40-5.80) Hemoglobin 12.3g/dL (13.8-17.2) Hematocrit 36.7% (41.0-50.0) Mean Corpuscular Volume 94.6fL (81-100) Mean Corpuscular Hemoglobin 31.7pg (27.0-35.0) Mean Corpuscular Hemoglobin Concent 33.5% (32.0-37.0) Red Cell Distribution Width 13.6% (12.3-15.4) Platelet Count 203bil/L (150-400) Neutrophils (%) (Auto) 71.9% (40-74) Lymphocytes (%) (Auto) 13.0% (14-46) Monocytes (%) (Auto) 12.5% (4-12) Eosinophils (%) (Auto) 2.1% (0-5) Basophils (%) (Auto) 0.3% (0-3) Sodium Level 129mEq/L (134-144) Potassium Level 4.7mEq/L (3.5-5.2) Chloride Level 93mEq/L (97-108) Carbon Dioxide Level 27mmol/L (18-29) Blood Urea Nitrogen 9mg/dL (8-27) Creatinine 0.58mg/dL (0.76-1.27) Estimat Glomerular Filtration Rate 146mL/min (>59) Glucose Level 111mg/dL (60-99) Calcium Level 8.2mg/dL (8.5-10.1) Total Bilirubin 0.8mg/dL (0.0-1.2) Aspartate Amino Transf (AST/SGOT) 19U/L (0-50) Alanine Aminotransferase (ALT/SGPT) 13U/L (0-44) Alkaline Phosphatase 55U/L (25-160) Total Protein 5.5g/dL (6.4-8.4) Albumin 2.9g/dL (3.4-5.0) Result Diagram: 11/14/1644911/14/16449 General Appearance: Alert, Oriented X3, Cooperative, No Acute Distress Extremities: No Compartment Syndrom Noted, Thigh & Calf Soft/Nontender Postop Sensory Motor: Distal Motor Intact, Movement in Toes, Distal Sensation Intact Activity: Activity per PT, Ambulate with PT (weightbearing as tolerated on the right lower extremity using a front wheeled walker.) Catheters: None Assessment & Plan Impression Reinaldo Rhodes is a 76-year-old male seen today 1 day postop right femoral IM nail placed on 11/13/[address] Feliz soliman. Patient has a live-in caregiver at home and is anticipating discharge to home. Problems: Plan Postoperative day #1 from right femoral IM nail placed on 11/13/[address] Feliz Moura Weightbearing as tolerated on the right lower extremity using a front-wheeled walker. Continue formal physical therapy for mobility, gait and safety. Continue by mouth pain medication as needed with.. Nursing please transitioned patient from IV pain medication to by mouth as soon as possible. Nursing please resume Eliquis 5 mg at 0830h postop day 1 Nursing please measure and fit bilateral thigh-high KOKO hose as ordered today. Interoperative dressing will be changed on postoperative note Follow-up in 2 weeks at [facility] orthopedic clinic with Dr. Feliz Moura with two -view right femur x-rays on arrival and planned suture removal. Patient may get wound wet after this visit. Follow-up in 6 weeks at [facility] orthopedic clinic with Dr. Feliz soliman with two-view right femur x-rays on arrival. Orthopedics thanks hospitalist service for their help in the medical management of this patient. Anticipate discharge to home [place] for postoperative day #3 VTE Prophylaxis: SCDs (bilateral SCDs), KOKO Hose (bilateral thigh-high KOKO hose ) Armando Nicole PA-C November 14, 2016 08:47
[2016-11-14] MEDS ORDERED: HYDROcodone-APAP 7.5-325 mg Tablet PO PRN (09:00)
--- NOTE | 2016-11-14 09:45 | NUR ---
Evaluation completed. Please go to "Notes" then click on "Assessments and Notes" (bottom left corner of screen). Then select appropriate discipline tab on top of screen.
[2016-11-14] MEDS: oxyCODONE-Acetamin 5-325 mg Tablet PO PRN ×4 (10:32→23:41)
[2016-11-14] MEDS: Tiotropium 18mcg/Cap 5 Capsule Inhaler Kit INHALATION SCH (10:33)
--- NOTE | 2016-11-14 11:38 | PCM.PNMED ---
Subjective Date of Service November 14, 2016 Subjective POD#1 Patient tolerated surgery well, no post-op Cx reported Denied any difficulty breathing, cough, sputum Exam Vital Signs Vital Sign - Last Date Time Temp Pulse Resp B/P Pulse Ox O2 Delivery O2 Flow Rate FiO2 11/14/16 08:12 83 18 95 Nasal Cannula 1.00 11/14/16 05:40 36.8 97/61 Intake and Output 11/13/16 11/13/16 11/14/16 Cumulative From/Thru 15:00 23:00 07:00 11/13/16 07:14 - 11/14/16 06:27 Intake Total 1200 ml 1336 ml 2536 ml Output Total 200 ml 705 ml 905 ml Balance -200 ml 495 ml 1336 ml 1631 ml Intake Oral 200 ml 200 ml IV Total 1000 ml 1336 ml 2336 ml Output Urine Total 200 ml 675 ml 875 ml Estimated Blood Loss 30 ml 30 ml # Voids 3 3 Exam NAD, comfortably laying down on the bed no JVD, MMM, no LAD RRR, nl s1, s2 no mrg CTAB, no w,c S,ND,NT,normoactive BS+ warm, no edema, Rt leg pulse 1/2, cold, tenderness on Rt hip area IVs and Medications Medications Reviewed: Medications were reviewed in detail Lab and Diagnostics Result Diagram: 11/14/16 0450 11/14/16 0800 X-Rays, CTs and MRIs PROCEDURE: X-RAY PELVIS W/LAT HIP (RT) ([id number]) INDICATIONS: trauma/pain TECHNIQUE: AP pelvis with lateral view(s) of the right hip(s). COMPARISON: None. FINDINGS: Bones: Comminuted fracture at the base of the right femoral neck. Lower lumbar degenerative disc disease. Soft tissues: The visualized bowel gas pattern is normal. No suspicious soft tissue calcifications. There are surgical clips in the right inguinal region. Scattered vascular calcifications IMPRESSION: Comminuted right basicervical femoral neck fracture Dictated by: Andrew Velazquez M.D. on 11/13/2016 at 8:49 Approved by: Andrew Velazquez M.D. on 11/13/2016 at 8:51 PROCEDURE: X-RAY CHEST ONE VIEW ([id number]) INDICATIONS: FELL; PREOPERATIVE FOR HIP FRACTURE TECHNIQUE: One view of the chest was acquired. COMPARISON: None. FINDINGS: Surgical changes and devices: None. Lungs and pleura: No pleural effusions or pneumothorax. No acute consolidation. Widespread interstitial changes, scarring and atelectasis. Presumed high density calcified granulomas projecting in the lung bases, and perihilar regions, and/or calcified hilar lymph nodes. Mediastinum: Mediastinal contours appear normal. Heart size is normal. Bones and chest wall: No suspicious bony lesions. Overlying soft tissues appear unremarkable. IMPRESSION: Chronic interstitial disease and scarring. No acute consolidation. Dictated by: Andrew Velazquez M.D. on 11/13/2016 at 8:51 Approved by: Andrew Velazquez M.D. on 11/13/2016 at 8:52 12-lead ECG NSR Assessment & Plan Acute, active acute Rt hip fx, in the setting of ground level mechanical fall,s/p right femoral IM nail placed on 11/13/[address] Feliz soliman. -dvt ppx, pain management per orthopedic postoperatively -dilaudid prn for pain, zofran prn for n/v -trends h/h postop Chronic, stable chronic etoh abuse, intoxicated, etoh level 25, no signs of WD, denied major WD in the past. out of window for WD, stable Paroxysmal afib, held Apixaban, resumed after surgery, continue atenolol daily Augustin's esophagus, continue PPI active smoker, nicotine patch COPD, seems stable, will use O2 supplement as needed post-op, target SpO2>92%, -continue Spiriva, albuterol q2h prn dispo:likely d/c on POD#3, [place] diet:general diet dvt ppx:Apixaban, per surgery Full code, verbally confirmed with patient VTE Prophylaxis: SCDs (bilateral SCDs), KOKO Hose (bilateral thigh-high KOKO hose ) VTE Mechanical Devices: Intermittant Pneumatic CD Time spent 35min Kali Ortiz MD November 14, 2016 11:38
[2016-11-14] MEDS: hydrOXYzine Pamoate 25 mg Capsule PO PRN (12:43)
[2016-11-14] MEDS: Pantoprazole 20 mg ER24 Tablet PO SCH (14:00)
--- NOTE | 2016-11-14 14:31 | NUR ---
Social Work: Initial Assessment Data & Assessment: See Initial Assessment. EMR reviewed. Patient is a 76 y/o man that admitted on 11/13/16 for Rt. Hip Fx per H&P. SW met with patient at bedside to complete initial assessment, SW role reviewed, and discharge planning discussed. Patient reports no LTC or VA benefits. Patient confirmed Dr. Arnoldo Franco as PCP. Patient insurance is Medicare and [employer]. Patient states that he has an Advance Directive/DPOA and SW requested a copy. Patient re-admit score is 2 no risk. Patient reports that he lives at home in a single story home with a basement. Patient reports that there is one step to enter the home and he has a caregiver that lives with him and cooks for him. Patient reports that he still drives. Patient reports no HH or SNF history. Patient's discharge needs are currently undetermined. SW will continue to follow and assist patient throughout stay. Plan: SW will continue to follow and assist patient with discharge planning needs. Tammie Richard LMSW, HARLAN Addendum: 11/14/16 at 1444 by TAMMIE SALAZAR Amended: Links added. Addendum: 11/14/16 at 1444 by TAMMIE SALAZAR Patient reports that he has a Walker and WC if needed.
--- NOTE | 2016-11-14 15:49 | NUR ---
Pain Q4H PRN PO pain medication order received at the start of shift to transition patient from IVP to PO. Educated on the importance of moving towards PO medication instead of IV with pain management. Patient requesting pain medication upon each RN patient check. Patient stating pain level a 3/10 at the highest and a 2/10 at the lowest during shift and stating this is a tolerable level but still requesting something for pain. Patient educated on expecting some discomfort following a surgical procedure and educated about nonsurgical methods of reducing pain. Continuing to assess for pain and Q4 Neuro checks.
[2016-11-15] VITALS (8 sets, daily range): BP systolic 106–129; BP diastolic 61–72; PULSE 77–112; RESP 18–20; O2SAT 91–96
--- NOTE | 2016-11-15 03:38 | NUR ---
Pain/activity pt has been given percocet Q4H for pain that he rates 3/10. He says pain is being kept tolerable at a 3. CMS is intact to RLE. pt still denies ability to lift R leg on his own. nurse discussed ankle waving exercises with pt, he has practiced moving his ankle around but is unable to do it with his leg in the air. nurse also asked pt if he wanted to stand at bedside or dangle but pt has so far refused this shift. will continue to encourage exercises when pt awake. care continues.
[2016-11-15] MEDS: oxyCODONE-Acetamin 5-325 mg Tablet PO PRN ×2 (04:05→08:12)
[2016-11-15 05:27] LABS: BASOPHILS % (AUTO) 0.4 % (0-3); EOSINOPHILS % (AUTO) 4.1 % (0-5); MONOCYTES % (AUTO) 12.4 % (4-12); Mean Corpuscular Hemoglobin 31.7 pg (27.0-35.0); Mean Corpuscular Volume 95.6 fL (81-100); NEUTROPHILS % (AUTO) 64.6 % (40-74); Platelet Count 182 bil/L (150-400)
[2016-11-15] MEDS: Pantoprazole 20 mg ER24 Tablet PO SCH (06:07)
--- NOTE | 2016-11-15 07:59 | PCM.PNORTH ---
Subjective Visit Information: Reason for Visit R Hip Fx Surgery/Surgery Date Post-Op Day # Date of Admission: November 13, 2016 at 10:04 Hospital Day # Postop General: No Complaints, No Shortness of Breath, No Chest Pain Pain Management: PO, IV Push Objective Exam Objective Alert and oriented 3 and pleasant. Interoperative dressing is clean and lucent. Interoperative dressings changed to postop type dressing with ventilated islands. Wounds are in good condition. Toe wiggle and sensation are intact at right lower extremity distally. Calf and thigh are soft and nontender. [place] is absent. Gait times a few side steps with physical therapy yesterday on 11/14/2016. Vital Signs and I/O Vital Sign - Last Date Time Temp Pulse Resp B/P Pulse Ox O2 Delivery O2 Flow Rate FiO2 11/15/16 05:22 112 11/15/16 05:00 36.2 20 128/72 91 Room Air 11/14/16 08:12 1.00 Intake and Output 11/14/16 11/14/16 11/15/16 Cumulative From/Thru 15:00 23:00 07:00 11/13/16 07:14 - 11/15/16 06:49 Intake Total 1283 ml 1236 ml 636 ml 5691 ml Output Total 675 ml 1355 ml 1100 ml 4035 ml Balance 608 ml -119 ml -464 ml 1656 ml Intake Oral 1000 ml 1236 ml 636 ml 3072 ml IV Total 283 ml 2619 ml Output Urine Total 675 ml 1355 ml 1100 ml 4005 ml Estimated Blood Loss 30 ml # Voids 3 5 4 15 # Bowel Movements 0 0 0 Lab & Micro Results Laboratory Tests Test 11/14/16 08:00 11/15/16 04:50 Sodium Level 131mEq/L (134-144) Potassium Level 4.6mEq/L (3.5-5.2) Chloride Level 94mEq/L (97-108) Carbon Dioxide Level 28mmol/L (18-29) Blood Urea Nitrogen 8mg/dL (8-27) Creatinine 0.60mg/dL (0.76-1.27) Estimat Glomerular Filtration Rate 140mL/min (>59) Glucose Level 110mg/dL (60-99) Calcium Level 8.3mg/dL (8.5-10.1) Total Bilirubin 1.0mg/dL (0.0-1.2) Aspartate Amino Transf (AST/SGOT) 20U/L (0-50) Alanine Aminotransferase (ALT/SGPT) 14U/L (0-44) Alkaline Phosphatase 58U/L (25-160) Total Protein 5.9g/dL (6.4-8.4) Albumin 3.1g/dL (3.4-5.0) White Blood Count 9.2th/mm3 (3.8-10.1) Red Blood Count 3.66mil/mm3 (4.40-5.80) Hemoglobin 11.6g/dL (13.8-17.2) Hematocrit 35.0% (41.0-50.0) Mean Corpuscular Volume 95.6fL (81-100) Mean Corpuscular Hemoglobin 31.7pg (27.0-35.0) Mean Corpuscular Hemoglobin Concent 33.1% (32.0-37.0) Red Cell Distribution Width 13.3% (12.3-15.4) Platelet Count 182bil/L (150-400) Neutrophils (%) (Auto) 64.6% (40-74) Lymphocytes (%) (Auto) 18.3% (14-46) Monocytes (%) (Auto) 12.4% (4-12) Eosinophils (%) (Auto) 4.1% (0-5) Basophils (%) (Auto) 0.4% (0-3) Result Diagram: 11/15/16 0450 11/14/16 0800 General Appearance: Alert, Oriented X3, Cooperative, No Acute Distress Extremities: No Compartment Syndrom Noted, Thigh & Calf Soft/Nontender Postop Sensory Motor: Distal Motor Intact, Movement in Toes, Distal Sensation Intact Activity: Activity per PT, Ambulate with PT (weightbearing as tolerated on the right lower extremity using a front wheeled walker.) Catheters: None Assessment & Plan Impression Reinaldo Rhodes is a 76-year-old male who is 2 days status post right long femoral IM nail secondary to hip fracture. He has participated in therapy with a few sidesteps on 11/14/2016. Patient and his speech discharged to home with existing living caregiver. Problems: Plan Postoperative day #2 from right femoral IM nail placed on 11/13/[address] Feliz Moura Weightbearing as tolerated on the right lower extremity using a front-wheeled walker. Continue formal physical therapy for mobility, gait and safety. Continue by mouth pain medication as needed with. Interoperative dressing is changed today to island-type dressings and wounds are in good condition Follow-up in 2 weeks at [facility] orthopedic clinic with Dr. Feliz Moura with two -view right femur x-rays on arrival and planned suture removal. Patient may get wound wet after this visit. Follow-up in [address] [facility] orthopedic clinic with Dr. Feliz soliman with two-view right femur x-rays on arrival. Orthopedics thanks hospitalist service for their help in the medical management of this patient. Anticipate discharge to home with livestock nutrition territory manager by hospitalist service on postoperative day #3 if patient is medically appropriate to do so. VTE Prophylaxis: SCDs (bilateral SCDs), KOKO Hose (bilateral thigh-high KOKO hose ), Other (chronic Eliquis 5 mg twice a day for DVT prophylaxis restarted yesterday on 11/14/2016) Armando Nicole PA-C November 15, 2016 07:58
[2016-11-15] MEDS: Tiotropium 18mcg/Cap 5 Capsule Inhaler Kit INHALATION SCH (08:13)
--- NOTE | 2016-11-15 09:16 | PCM.PNMED ---
Subjective Date of Service November 15, 2016 Subjective pt is doing well, denied pain, participate with PT denied sob, chest pain, remained on RA Exam Vital Signs Vital Sign - Last Date Time Temp Pulse Resp B/P Pulse Ox O2 Delivery O2 Flow Rate FiO2 11/15/16 07:45 88 11/15/16 05:00 36.2 20 128/72 91 Room Air 11/14/16 08:12 1.00 Intake and Output 11/14/16 11/14/16 11/15/16 Cumulative From/Thru 15:00 23:00 07:00 11/13/16 07:14 - 11/15/16 06:49 Intake Total 1283 ml 1236 ml 636 ml 5691 ml Output Total 675 ml 1355 ml 1100 ml 4035 ml Balance 608 ml -119 ml -464 ml 1656 ml Intake Oral 1000 ml 1236 ml 636 ml 3072 ml IV Total 283 ml 2619 ml Output Urine Total 675 ml 1355 ml 1100 ml 4005 ml Estimated Blood Loss 30 ml # Voids 3 5 4 15 # Bowel Movements 0 0 0 Exam NAD, comfortably laying down on the bed no JVD, MMM, no LAD RRR, nl s1, s2 no mrg CTAB, no w,c S,ND,NT,normoactive BS+ warm, no edema, Rt leg pulse 1/2, cold, tenderness on Rt hip area IVs and Medications Medications Reviewed: Medications were reviewed in detail Lab and Diagnostics Result Diagram: 11/15/16 0450 11/14/16 0800 X-Rays, CTs and MRIs PROCEDURE: X-RAY PELVIS W/LAT HIP (RT) ([id number]) INDICATIONS: trauma/pain TECHNIQUE: AP pelvis with lateral view(s) of the right hip(s). COMPARISON: None. FINDINGS: Bones: Comminuted fracture at the base of the right femoral neck. Lower lumbar degenerative disc disease. Soft tissues: The visualized bowel gas pattern is normal. No suspicious soft tissue calcifications. There are surgical clips in the right inguinal region. Scattered vascular calcifications IMPRESSION: Comminuted right basicervical femoral neck fracture Dictated by: Andrew Velazquez M.D. on 11/13/2016 at 8:49 Approved by: Andrew Velazquez M.D. on 11/13/2016 at 8:51 PROCEDURE: X-RAY CHEST ONE VIEW ([id number]) INDICATIONS: FELL; PREOPERATIVE FOR HIP FRACTURE TECHNIQUE: One view of the chest was acquired. COMPARISON: None. FINDINGS: Surgical changes and devices: None. Lungs and pleura: No pleural effusions or pneumothorax. No acute consolidation. Widespread interstitial changes, scarring and atelectasis. Presumed high density calcified granulomas projecting in the lung bases, and perihilar regions, and/or calcified hilar lymph nodes. Mediastinum: Mediastinal contours appear normal. Heart size is normal. Bones and chest wall: No suspicious bony lesions. Overlying soft tissues appear unremarkable. IMPRESSION: Chronic interstitial disease and scarring. No acute consolidation. Dictated by: Andrew Velazquez M.D. on 11/13/2016 at 8:51 Approved by: Andrew Velazquez M.D. on 11/13/2016 at 8:52 12-lead ECG NSR Assessment & Plan Acute, active acute Rt hip fx, in the setting of ground level mechanical fall,s/p right femoral IM nail placed on 11/13/[address] Feliz soliman. -dvt ppx, pain management per orthopedic postoperatively -dilaudid prn for pain, zofran prn for n/v -trends h/h postop Chronic, stable chronic etoh abuse, intoxicated, etoh level 25, no signs of WD, denied major WD in the past. out of window for WD, stable Paroxysmal afib, held Apixaban, resumed after surgery, continue atenolol daily Augustin's esophagus, continue PPI active smoker, nicotine patch COPD, seems stable, will use O2 supplement as needed post-op, target SpO2>92%, -continue Spiriva, albuterol q2h prn dispo:likely d/c on POD#3, [place] diet:general diet dvt ppx:Apixaban, per surgery Full code, verbally confirmed with patient VTE Prophylaxis: SCDs, KOKO Hose, Other VTE Mechanical Devices: Intermittant Pneumatic CD, Anti-Embolic stockings Time spent 35min Kali Ortiz MD November 15, 2016 09:16
--- NOTE | 2016-11-15 12:02 | NUR ---
SUMMER Signed SAMANTHA Ferguson
--- NOTE | 2016-11-15 12:11 | NUR ---
Social Work Note: Continued Discharge Planning Data& Assessment: EMR Reviewed. Pt is currently 1PA with a FWW. Pt is primarily homebound with a caregiver helping out with most of the chores and errands. SW discussed home health services with pt. Pt explained he feels like he is at his baseline but will keep home health PT in mind if he continues to lose strength and if MD feels its appropriate. Pt denies any needs at this time. SW to continue to follow if any needs arise. Plan: Anticipated discharge home via POV when medically ready. Pt denies any needs at this time. SW to continue to follow if any needs arise. SAMANTHA Ferguson
[2016-11-15] MEDS: HYDROcodone-APAP 5-325 mg Tablet PO PRN ×2 (14:55→20:26)
--- NOTE | 2016-11-15 17:29 | NUR ---
Pain/Activity Pt having some dizziness and feeling "drugged" with Percocet. Switched to [place] to see if pt tolerates better. Pt's pain 2-4/10 during shift. Pt worked with PT, then declined to get OOB until highly encouraged. Able to sit in recliner and eat dinner there. Educated that he needs to get moving and will have a better surgical outcome. Pt CIWA scale 0-2 during shift.
--- NOTE | 2016-11-15 18:30 | NUR ---
Dysuria Pt having new onset dysuria. Paged MD for UA orders and pt given new urinal for sample. Will wait for MD to call back for orders. Continue q1 hour rounding.
[2016-11-15 19:56] LABS: APPEARANCE,URINE CLEAR (CLEAR,HAZY); COLOR,URINE YELLOW (YELLOW); OCCULT BLOOD,URINE TRACE (NEGATIVE); UROBILINOGEN,URINE NORMAL (NORMAL)
[2016-11-16] MEDS: HYDROcodone-APAP 5-325 mg Tablet PO PRN ×6 (00:49→21:36)
[2016-11-16 05:10] VITALS: BP 114/63; PULSE 76; RESP 18; O2SAT 95
--- NOTE | 2016-11-16 05:37 | NUR ---
Pain/activity Pt reporting pain controlled with 2 tab of Percocet 5/325mg and has not been higher than a /10 this shift. Pt requiring 2 PA and gait belt to get up and then 1PA with FWW while walking. CIWA throughout this shift has been 0-1. Shashank hose in place bilaterally. Top right hip dressing reinforced with hypafix tape.
[2016-11-16 05:47] LABS: BASOPHILS % (AUTO) 0.3 % (0-3); EOSINOPHILS % (AUTO) 2.2 % (0-5); MONOCYTES % (AUTO) 12.2 % (4-12); Mean Corpuscular Hemoglobin 31.6 pg (27.0-35.0); Mean Corpuscular Volume 94 fL (81-100); NEUTROPHILS % (AUTO) 70.6 % (40-74); Platelet Count 210 bil/L (150-400)
--- NOTE | 2016-11-16 08:48 | PCM.ANEP1 ---
Post Anesthesia PACU Phase 1 Assessment Vital Signs Vital Signs Date Time Temp Pulse Resp B/P Pulse Ox O2 Delivery O2 Flow Rate FiO2 11/16/16 05:10 36.6 76 18 114/63 95 Room Air Anesthetic Administered: GA Level of Alertness: Awake, talking HEWITT's with Equal Strength: Yes Pain: Yes (not rated) Pain Scale Score: 2 Nausea or Vomiting: No CV Function and Hydration: Yes Airway Device: Lungs: Normal Air Movement, Coarse PACU Phase 2 Assessment Complications: No Follow up Care: No Patient Instructions Provided: N/A Kaleb Fernández MD November 16, 2016 08:48
[2016-11-16 08:56] VITALS: BP 151/72; PULSE 84; RESP 16; O2SAT 95
[2016-11-16 09:08] VITALS: PULSE 84; RESP 18; O2SAT 96
[2016-11-16 09:09] VITALS: PULSE 74
[2016-11-16] MEDS: Pantoprazole 20 mg ER24 Tablet PO SCH (09:24)
[2016-11-16] MEDS: hydrOXYzine Pamoate 25 mg Capsule PO PRN ×3 (09:24→21:33)
[2016-11-16] MEDS: Tiotropium 18mcg/Cap 5 Capsule Inhaler Kit INHALATION SCH (09:25)
--- NOTE | 2016-11-16 10:03 | PCM.PNORTH ---
Subjective Date of Service: November 16, 2016 Visit Information: Reason for Visit R Hip Fx Surgery/Surgery Date Post-Op Day # Date of Admission: November 13, 2016 at 10:04 Hospital Day # Subjective Foundation awake and alert sitting up in bed this morning. No complaints of pain. Discussed his performance with physical therapy and the fact that they are recommending discharge to intermediate facility. I explained to the patient this morning why this is recommended and the fact that it is a safety issue in order to give him more time to become more mobile and safe prior to going home. Patient is understanding of this and is agreeable to discharge and to skilled facility. I will also advised patients that orthopedics will sign off on him at this time but will be here and available for treatment or consultation as needed. Patient will be seen in 2 weeks in our office. Postop General: No Complaints, No Chest Pain Pain Management: PO Objective Exam Objective Alert and oriented 3 and pleasant. Postoperative dressings are clean dry and slightly loose. Postoperative dressings are changed again this morning and wounds are in good condition and show no signs of infection. Calf and thigh are soft and nontender. Toe wiggle and sensation are intact at right lower extremity distally Gait 25-50 feet on 11/15/2016 with physical therapy. Recommendation is for discharge to intermediate facility Vital Signs and I/O Vital Sign - Last Date Time Temp Pulse Resp B/P Pulse Ox O2 Delivery O2 Flow Rate FiO2 11/16/16 09:09 74 11/16/16 09:08 18 96 Room Air 11/16/16 08:56 36.2 151/72 11/14/16 08:12 1.00 Intake and Output 11/15/16 11/15/16 11/16/16 Cumulative From/Thru 15:00 23:00 07:00 11/13/16 07:14 - 11/16/16 06:37 Intake Total 436 ml 600 ml 6727 ml Output Total 575 ml 650 ml 5260 ml Balance -139 ml -50 ml 1467 ml Intake Oral 436 ml 600 ml 4108 ml IV Total 2619 ml Output Urine Total 575 ml 650 ml 5230 ml Estimated Blood Loss 30 ml # Voids 15 # Bowel Movements 1 1 Lab & Micro Results Laboratory Tests Test 11/15/16 18:50 11/16/16 04:45 Urine Color Yellow (YELLOW) Urine Appearance Clear (CLEAR,HAZY) Urine pH 7.0 (5.0-8.0) Urine Specific [place] 1.010 (1.003-1.035) Urine Protein Negativemg/dL (NEG,TRACE) Urine Glucose (UA) Negativemg/dL (NEGATIVE) Urine Ketones Negativemg/dL (NEGATIVE) Urine Occult Blood Trace (NEGATIVE) Urine Nitrite Negative (NEGATIVE) Urine Bilirubin Negative (NEGATIVE) Urine Urobilinogen Normalmg/dL (NORMAL) Urine Leukocyte Esterase Negative (NEGATIVE) Urine RBC 0-2/hpf (0-2) Urine WBC 0-5/hpf (0-5) Urine Epithelial Cells None/hpf (NONE-MOD) Urine Crystals None seen (NONE SEEN) Urine Bacteria Few/hpf (NONE-FEW) Urine Hyaline Casts None/lpf (NONE) Urine Granular Casts None seen (NONE SEEN) Urine Waxy Casts None seen (NONE SEEN) Urine Red Blood Cell Casts None seen (NONE SEEN) Urine White Blood Cell Casts None seen (NONE SEEN) Urine Mucus None seen (None Seen) Urine Trichomonas None seen (NONE SEEN) Urine Yeast None (NONE SEEN) Urinalysis Comment None Urine Culture Reflexed Not indicated Hold Urine Received (Received) White Blood Count 9.7th/mm3 (3.8-10.1) Red Blood Count 3.67mil/mm3 (4.40-5.80) Hemoglobin 11.6g/dL (13.8-17.2) Hematocrit 34.5% (41.0-50.0) Mean Corpuscular Volume 94fL (81-100) Mean Corpuscular Hemoglobin 31.6pg (27.0-35.0) Mean Corpuscular Hemoglobin Concent 33.6% (32.0-37.0) Red Cell Distribution Width 13.1% (12.3-15.4) Platelet Count 210bil/L (150-400) Neutrophils (%) (Auto) 70.6% (40-74) Lymphocytes (%) (Auto) 14.7% (14-46) Monocytes (%) (Auto) 12.2% (4-12) Eosinophils (%) (Auto) 2.2% (0-5) Basophils (%) (Auto) 0.3% (0-3) Result Diagram: 11/16/16 0445 11/14/16 0800 General Appearance: Alert, Oriented X3, Cooperative, No Acute Distress Extremities: No Compartment Syndrom Noted, Thigh & Calf Soft/Nontender Postop Sensory Motor: Distal Motor Intact, Movement in Toes, Distal Sensation Intact Activity: Activity per PT, Ambulate with PT (weightbearing as tolerated on the right lower extremity using a front wheeled walker.) Catheters: None Assessment & Plan Plan Postoperative day #3 from right femoral IM nail placed on 11/13/[address] Feliz Moura Weightbearing as tolerated on the right lower extremity using a front-wheeled walker. Continue formal physical therapy for mobility, gait and safety. Continue by mouth pain medication as needed Elma 5 mg 2 daily with Vistaril 25 mg. Continue Eliquis 5 mg twice a day for DVT prophylaxis. Postoperative dressing is changed today secondary to looseness and wounds are found in good condition. Follow-up in 2 weeks at [facility] orthopedic clinic with Dr. Feliz Moura with two -view right femur x-rays on arrival and planned suture removal with placement of Steri-Strips. Patient may get wound wet after this visit. Follow-up in 6 weeks at [facility] orthopedic clinic with Dr. Feliz soliman with two-view right femur x-rays on arrival. Orthopedics thanks hospitalist service for their help in the medical management of this patient. Orthopedics will sign off on this patient today but as always we will remain available for consultation or treatment as needed. Anticipate discharge to intermediate facility by hospitalist service today on postoperative day #3, 11/16/2016 if patient is medically appropriate to do so VTE Prophylaxis: KOKO Bruce, Armando Mustafa PA-C November 16, 2016 10:03
[2016-11-16 13:02] VITALS: BP 128/74; PULSE 72; RESP 17; O2SAT 95
--- NOTE | 2016-11-16 14:42 | PCM.PNMED ---
Subjective Date of Service November 16, 2016 Subjective Feeling all right, warm to go home but I think he understands that that is probably not a great plan. No chest pain no dyspnea no nausea or vomiting. I think the patient's a little more agreeable to considering an SNF as long as it is in/closer to [place] where he lives. Exam Vital Signs Vital Sign - Last Date Time Temp Pulse Resp B/P Pulse Ox O2 Delivery O2 Flow Rate FiO2 11/16/16 13:02 36.4 72 17 128/74 95 Room Air 11/14/16 08:12 1.00 Intake and Output 11/15/16 11/15/16 11/16/16 Cumulative From/Thru 15:00 23:00 07:00 11/13/16 07:14 - 11/16/16 06:37 Intake Total 436 ml 600 ml 6727 ml Output Total 575 ml 650 ml 5260 ml Balance -139 ml -50 ml 1467 ml Intake Oral 436 ml 600 ml 4108 ml IV Total 2619 ml Output Urine Total 575 ml 650 ml 5230 ml Estimated Blood Loss 30 ml # Voids 15 # Bowel Movements 1 1 Exam Gen.- A+ O 3 no apparent distress. Thin male sitting up in bed Eyes- open conjunctiva clear, pupils equal nonicteric ENT- ears normal, nose normal, hearing intact Neck- supple/trach midline CVS-rate normal Lungs- respirations regular, nonlabored GI- abdomen flat Musc- moving 4 no obvious deformity Neuro- cranial nerves II through XII intact to gross examination, nonfocal Skin- warm and dry, no rashes/lesions/wounds noted Psych- pleasant and appropriate, Lab and Diagnostics Result Diagram: 11/16/16 0445 11/14/16 0800 X-Rays, CTs and MRIs PROCEDURE: X-RAY PELVIS W/LAT HIP (RT) ([id number]) INDICATIONS: trauma/pain TECHNIQUE: AP pelvis with lateral view(s) of the right hip(s). COMPARISON: None. FINDINGS: Bones: Comminuted fracture at the base of the right femoral neck. Lower lumbar degenerative disc disease. Soft tissues: The visualized bowel gas pattern is normal. No suspicious soft tissue calcifications. There are surgical clips in the right inguinal region. Scattered vascular calcifications IMPRESSION: Comminuted right basicervical femoral neck fracture Dictated by: Andrew Velazquez M.D. on 11/13/2016 at 8:49 Approved by: Andrew Velazquez M.D. on 11/13/2016 at 8:51 PROCEDURE: X-RAY CHEST ONE VIEW ([id number]) INDICATIONS: FELL; PREOPERATIVE FOR HIP FRACTURE TECHNIQUE: One view of the chest was acquired. COMPARISON: None. FINDINGS: Surgical changes and devices: None. Lungs and pleura: No pleural effusions or pneumothorax. No acute consolidation. Widespread interstitial changes, scarring and atelectasis. Presumed high density calcified granulomas projecting in the lung bases, and perihilar regions, and/or calcified hilar lymph nodes. Mediastinum: Mediastinal contours appear normal. Heart size is normal. Bones and chest wall: No suspicious bony lesions. Overlying soft tissues appear unremarkable. IMPRESSION: Chronic interstitial disease and scarring. No acute consolidation. Dictated by: Andrew Velazquez M.D. on 11/13/2016 at 8:51 Approved by: Andrew Velazquez M.D. on 11/13/2016 at 8:52 12-lead ECG NSR Assessment & Plan 76-year-old male admitted 11/13 after having a fall in the [employer] hotel where he had been sleeping him with bathroom. 11/16 meeting this patient for the first time he is medically stable, he is reluctant to consider SNF but I think I may have persuaded him that would be an optimal plan for his best recovery. He is medically clear for discharge. acute Rt hip fx, in the setting of ground level mechanical fall,s/p right femoral IM nail placed on 11/13/[address] Feliz soliman. -dvt ppx, pain management per orthopedic postoperatively -dilaudid prn for pain, zofran prn for n/v etoh abuse, intoxicated, etoh level 25, no signs of WD, denied major WD in the past. out of window for WD, stable Paroxysmal afib, held Apixaban, resumed after surgery, continue atenolol daily Augustin's esophagus, continue PPI active smoker, nicotine patch COPD, seems stable, will use O2 supplement as needed post-op, target SpO2>92%, -continue Spiriva, albuterol q2h prn dispo: Unclear, patient has a desire to go home but sounds more agreeable to going to SNF closer to home diet:general diet dvt ppx:Apixaban, per surgery Full code, verbally confirmed with patient VTE Prophylaxis: SCDs, KOKO Hose, Other VTE Mechanical Devices: Intermittant Pneumatic CD Kulwinder Tate MD November 16, 2016 14:42
--- NOTE | 2016-11-16 15:11 | NUR ---
Social Work-readiness for discharge: Data:EMR Reviewed. Pt is on day 3 of hospitalization for R hip fx per H&P. Pt is not medically stable anticipate 1-2 more days. PT continues to work with pt and recommend SNF placement. order received for SNF placement. SW met with pt, choices provided for SNF. Pt states he is from [place] and would like a referral to [facility] P: [phone] ( first choice) and [facility] P: F: ( second choice). SW also discussed transportation to facility. SW explained if pt was able to tolerate private transport he could go this way or he would have to pay privately for a w.c van. Pt states he would be able to pay privately for a w/c van or his friend could drive him own w/c van up to the hospital and pick him up. SW asked UR specialist to fax clinicals to both facilities, fax numbers provided. Paperwork and PASRR in the chart. SW will continue to follow. Assessment:pt who would benefit from SNF. Plan; Referrals have been made to [facility] P: [phone] ( first choice) and [facility] P: [phone] F: ( second choice). Paperwork and PASRR in the chart. SW will continue to follow. SAMANTHA Orozco
--- NOTE | 2016-11-16 15:28 | NUR ---
Faxed referral to [facility] in [place] [phone] and [facility] [phone] per [employer]
--- NOTE | 2016-11-16 18:08 | NUR ---
Pain Management Pain managed with 2 [place] and 25 mg tab of Vistaril every 4 hours this shift. Denied nausea this shift. Patient up to chair with SBA/FWW. Patient repositions self for comfort. Call light and tray table within reach. Will continue to monitor patient hourly.
[2016-11-16 19:55] VITALS: BP 131/72; PULSE 82; RESP 17; O2SAT 96
[2016-11-17] MEDS: HYDROcodone-APAP 5-325 mg Tablet PO PRN ×3 (01:55→12:30)
--- NOTE | 2016-11-17 04:30 | NUR ---
Activity Pt reporting pain 2/10 and continues to take 2 tab of Vicodin just about q4 hrs. Pt 1 PA to BR, strength better than yesterday, had a small BM. Per report, CIWA no longer needed as scores have been consistent 0-1. Right hip dressings CDI.
[2016-11-17 05:23] VITALS: BP 138/79; PULSE 79; RESP 18; O2SAT 94
[2016-11-17] MEDS: Pantoprazole 20 mg ER24 Tablet PO SCH (09:09)
[2016-11-17] MEDS: Tiotropium 18mcg/Cap 5 Capsule Inhaler Kit INHALATION SCH (09:09)
[2016-11-17 09:12] VITALS: BP 147/77; PULSE 93
--- NOTE | 2016-11-17 11:07 | NUR ---
Spoke with student admissions clerk at [facility] and they can accept patient today with to follow. RN to RN can be called to main line and ask for admit service. Updated BIOLOGICAL CHEMIST Addendum: 11/17/16 at 1236 by BENJAMIN COLEMAN CM Faxed orders and placed copy in chart, patient is being transported by friend. gave packet to patient.
--- NOTE | 2016-11-17 11:30 | PCM.DIMED ---
Discharge Instructions Date of Service November 17, 2016 Dates of Hospitalization November 13, 2016 at 10:04 Discharge Diagnosis Discharge Diagnosis Hip fracture, COPD/tobacco abuse Diet Discharge Diet: Heart Healthy Activity Discharge Activity: No restrictions Call your provider Call your provider for: Fever or Chills, Shortness of breath Patient Instructions Patient Instructions Patient to go to [facility] with Dr. Ashley following a think it will be there perhaps a week until he is able to ambulate and better care for himself Follow-up plan Patient should call his own PCP on arrival to get follow-up on discharge from SNF. Until then Dr. Ashley, facility provider, will be following Follow-up with PCP in: Other (call your primary for follow-up to be arranged on discharge from SNF) Kulwinder Tate MD November 17, 2016 11:30
[2016-11-17] MEDS ORDERED: ALBU8.5H2 INHALATION (11:39)
[2016-11-17] MEDS ORDERED: NICO1PAT5 TOPICAL (11:39)
[2016-11-17] MEDS ORDERED: OXYC1TAB24 PO (11:39)
[2016-11-17] MEDS ORDERED: HYDR-4003 PO (11:39)
[2016-11-17 12:24] VITALS: BP 116/57; PULSE 84; RESP 18; O2SAT 97
[2016-11-17] MEDS: hydrOXYzine Pamoate 25 mg Capsule PO PRN (12:30)
--- NOTE | 2016-11-17 12:43 | NUR ---
Social Work- Discharge Data: EMR reviewed. Pt is on day 4 of hospitalization for right hip fracture. Per MD in rounds, pt is medically stable for discharge. [facility] has accepted pt with MD Oneal to follow. SW spoke with pt at bedside regarding discharge plan, transportation to [facility]. Pt states that he has access to a wheelchair van that his friend will be able to transport him in. Pt coordinated transportation between 1330 and 1400. Pt declined SW calling any NOK or family regarding discharge. RN updated. SW provided RN with number to call report. UR Specialist created packet and faxed orders, packet provided to pt. Pt to discharge to [facility] with MD Oneal to follow. Pt to be transported by friend via wheelchair van. RN, UC, pt/family, and [facility] all updated and agreeable to plan. Assessment: Pt for whom SNF is medically ready. Plan: Pt to discharge to [facility] with MD Oneal to follow. Pt has discharge packet. Pt to be transported by friend via wheelchair van. RN, UC, pt/family, and [facility] all updated and agreeable to plan. SAMANTHA Bowers
--- NOTE | 2016-11-17 13:03 | PCM.DIORTH ---
Ortho Discharge Instruction Date of Service: November 17, 2016 Dates of Hospitalization Date of Hospital Admission November 13, 2016 at 10:04 Providers Admitting Physician: Kali Ortiz MD Primary Care Physician: Arnoldo Franco MD Attending Physician: Kali Ortiz MD Activity Discharge Activity-General: Ice incision 3-5 time/day for 20min Right Lower Extremity: Weight Bearing as tolerated Additional Instructions Discharge Instructions Weightbearing as tolerated on the right lower extremity using a front-wheeled walker. Continue formal physical therapy for mobility, gait and safety. Change dressing as needed. Follow-up in 2 weeks at [facility] orthopedic clinic with Dr. Feliz Moura with two -view right femur x-rays on arrival and planned suture removal with placement of Steri-Strips. Patient may get wound wet after this visit. Follow-up in 6 weeks at [facility] orthopedic clinic with Dr. Feliz soliman with two-view right femur x-rays on arrival. Nargis Jacobo PA-C November 17, 2016 13:03
--- NOTE | 2016-11-17 13:14 | PCM.DC.MED ---
Discharge Summary Date of Service November 17, 2016 Dates of Hospitalization Date of Hospital Admission November 13, 2016 at 10:04 Date of Discharge: November 17, 2016 Providers: Admitting Physician: Kali Ortiz MD Primary Care Physician: Arnoldo Franco MD Attending Physician: Kali Ortiz MD Diagnosis at Time of Discharge Diagnosis at Time of Discharge Hip fracture, COPD/tobacco abuse Consultations Orthopedics, Feliz Moura Procedures XRay, CTs & MRIs PROCEDURE: X-RAY PELVIS W/LAT HIP (RT) ([id number]) INDICATIONS: trauma/pain TECHNIQUE: AP pelvis with lateral view(s) of the right hip(s). COMPARISON: None. FINDINGS: Bones: Comminuted fracture at the base of the right femoral neck. Lower lumbar degenerative disc disease. Soft tissues: The visualized bowel gas pattern is normal. No suspicious soft tissue calcifications. There are surgical clips in the right inguinal region. Scattered vascular calcifications IMPRESSION: Comminuted right basicervical femoral neck fracture Dictated by: Andrew Velazquez M.D. on 11/13/2016 at 8:49 Approved by: Andrew Velazquez M.D. on 11/13/2016 at 8:51 PROCEDURE: X-RAY CHEST ONE VIEW ([id number]) INDICATIONS: FELL; PREOPERATIVE FOR HIP FRACTURE TECHNIQUE: One view of the chest was acquired. COMPARISON: None. FINDINGS: Surgical changes and devices: None. Lungs and pleura: No pleural effusions or pneumothorax. No acute consolidation. Widespread interstitial changes, scarring and atelectasis. Presumed high density calcified granulomas projecting in the lung bases, and perihilar regions, and/or calcified hilar lymph nodes. Mediastinum: Mediastinal contours appear normal. Heart size is normal. Bones and chest wall: No suspicious bony lesions. Overlying soft tissues appear unremarkable. IMPRESSION: Chronic interstitial disease and scarring. No acute consolidation. Dictated by: Andrew Velazquez M.D. on 11/13/2016 at 8:51 Approved by: Andrew Velazquez M.D. on 11/13/2016 at 8:52 ECG 12 Lead NSR Invasive Procedures Date of Service: November 13, 2016 Pre Operative Diagnosis right displaced intertrochanteric hip fracture Post Operative Diagnosis right displaced intertrochanteric hip fracture Procedure right hip closed reduction, intramedullary nail fixation Surgeon Surgeon: Feliz Moura MD Assistants: None Brief History 76 year male, active smoker, etoh abuse, history of paroxysmal A. fib on Apixaban, BB, Augustin's esophagus, PVD, COPD p/w Rt hip pain after mechanical fall. Hospital Course 76-year-old male admitted 11/13 [place] a fall [place] he had been sleeping him with bathroom. 11/16 meeting this patient for the first time he is medically stable, he is reluctant to consider SNF but I think I may have persuaded him that would be an optimal plan for his best recovery. He is medically clear for discharge. 11/17 pc. until this patient had an unremarkable stay. Had his procedure done 11/13 is having some pain and difficulty mobilizing not tolerating Percocets very well but doing okay with Vicodin. He understands that these probably not quite ready to go home and is agreeable to going to SNF in [place]. acute Rt hip fx, in the setting of ground level mechanical fall,s/p right femoral IM nail placed on 11/13/[address] Feliz soliman. -Patient managing with Vicodin, he has some Percocets ordered as well. He is back on his buttocks about an 4 A. fib as well as DVT prophylaxis etoh abuse, intoxicated, etoh level 25, no signs of WD, denied major WD in the past. out of window for WD, stable -Withdrawal has been a nonissue during this hospitalization. HTN/Paroxysmal afib, held Apixaban, resumed after surgery, continue atenolol daily -Blood pressure/heart rate up and adequately controlled for the duration of this hospitalization. Augustin's esophagus, continue PPI -Asymptomatic active smoker, nicotine patch -Has not been an issue COPD, seems stable, will use O2 supplement as needed post-op, target SpO2>92%, -continue Spiriva, albuterol q2h prn -Encourage patient to use IS and albuterol, his lungs are bit wheezy he denies having any issues and has declined while he has been here. dispo: Unclear, patient has a desire to go home but sounds more agreeable to going to SNF closer to home diet:general diet dvt ppx:Apixaban, per surgery Full code, verbally confirmed with patient Exam Vital Signs (Last) Date Time Temp Pulse Resp B/P Pulse Ox O2 Delivery O2 Flow Rate FiO2 11/17/16 12:24 36.9 84 18 116/57 97 Room Air 11/14/16 08:12 1.00 Exam Gen.- A+ O 3 no apparent distress. Thin male sitting up in bed Eyes- open conjunctiva clear, pupils equal nonicteric ENT- ears normal, nose normal, hearing intact Neck- supple/trach midline CVS-RRR no murmur/gallop Lungs- respirations regular, nonlabored, there is at least R wheezes and crackles towards the base they are minimal and asymptomatic GI- abdomen flat Musc- moving 4 no obvious deformity Neuro- cranial nerves II through XII intact to gross examination, nonfocal Skin- warm and dry, no rashes/lesions/wounds noted Psych- pleasant and appropriate, Test 11/13/16 08:03 11/14/16 08:00 11/15/16 18:50 11/16/16 04:45 Prothrombin Time 10.9sec (8.1-12.5) Prothromb Time International Ratio 1.02ratio Alcohols 25mg/dL (0-10) Sodium Level 131mEq/L (134-144) Potassium Level 4.6mEq/L (3.5-5.2) Chloride Level 94mEq/L (97-108) Carbon Dioxide Level 28mmol/L (18-29) Blood Urea Nitrogen 8mg/dL (8-27) Creatinine 0.60mg/dL (0.76-1.27) Estimat Glomerular Filtration Rate 140mL/min (>59) Glucose Level 110mg/dL (60-99) Calcium Level 8.3mg/dL (8.5-10.1) Total Bilirubin 1.0mg/dL (0.0-1.2) Aspartate Amino Transf (AST/SGOT) 20U/L (0-50) Alanine Aminotransferase (ALT/SGPT) 14U/L (0-44) Alkaline Phosphatase 58U/L (25-160) Total Protein 5.9g/dL (6.4-8.4) Albumin 3.1g/dL (3.4-5.0) Urine Color Yellow (YELLOW) Urine Appearance Clear (CLEAR,HAZY) Urine pH 7.0 (5.0-8.0) Urine Specific Sarah 1.010 (1.003-1.035) Urine Protein Negativemg/dL (NEG,TRACE) Urine Glucose (UA) Negativemg/dL (NEGATIVE) Urine Ketones Negativemg/dL (NEGATIVE) Urine Occult Blood Trace (NEGATIVE) Urine Nitrite Negative (NEGATIVE) Urine Bilirubin Negative (NEGATIVE) Urine Urobilinogen Normalmg/dL (NORMAL) Urine Leukocyte Esterase Negative (NEGATIVE) Urine RBC 0-2/hpf (0-2) Urine WBC 0-5/hpf (0-5) Urine Epithelial Cells None/hpf (NONE-MOD) Urine Crystals None seen (NONE SEEN) Urine Bacteria Few/hpf (NONE-FEW) Urine Hyaline Casts None/lpf (NONE) Urine Granular Casts None seen (NONE SEEN) Urine Waxy Casts None seen (NONE SEEN) Urine Red Blood Cell Casts None seen (NONE SEEN) Urine White Blood Cell Casts None seen (NONE SEEN) Urine Mucus None seen (None Seen) Urine Trichomonas None seen (NONE SEEN) Urine Yeast None (NONE SEEN) Urinalysis Comment None Urine Culture Reflexed Not indicated Hold Urine Received (Received) White Blood Count 9.7th/mm3 (3.8-10.1) Red Blood Count 3.67mil/mm3 (4.40-5.80) Hemoglobin 11.6g/dL (13.8-17.2) Hematocrit 34.5% (41.0-50.0) Mean Corpuscular Volume 94fL (81-100) Mean Corpuscular Hemoglobin 31.6pg (27.0-35.0) Mean Corpuscular Hemoglobin Concent 33.6% (32.0-37.0) Red Cell Distribution Width 13.1% (12.3-15.4) Platelet Count 210bil/L (150-400) Neutrophils (%) (Auto) 70.6% (40-74) Lymphocytes (%) (Auto) 14.7% (14-46) Monocytes (%) (Auto) 12.2% (4-12) Eosinophils (%) (Auto) 2.2% (0-5) Basophils (%) (Auto) 0.3% (0-3) Discharge Medications Discharge Medications Apixaban (Eliquis) 5 Mg Tablet 5 MG PO BID (Reported) Atenolol (Atenolol) 25 Mg Tablet 25 MG PO DAILY (Reported) Latanoprost (Xalatan) 2.5 Ml Drops 2.5 ML BOTH_EYES HS (Reported) Nicotine 14 mg/24 hr Patch (Nicotine 14 mg/24 hr Patch) 1 Each Patch.td24 1 PATCH TOPICAL DAILY Prescribed by: GOPAL TATE MD Omeprazole (Omeprazole) 20 Mg Capsule.dr 20 MG PO DAILY (Reported) Simvastatin (Simvastatin) 20 Mg Tablet 20 MG PO HS (Reported) Tiotropium [place] (Spiriva) 18 Mcg Cap.w.dev 18 MCG IH DAILY (Reported) As needed Albuterol HFA (Proair HFA) 8.5 Gm Hfa.aer.ad 2 PUFFS INHALATION Q4H PRN PRN For Shortness of Breath Prescribed by: GOPAL TATE MD Hydrocodone-Acetaminophen 5-325 mg (Hydrocodone-Acetaminophen 5-325 mg) 1 Each Tablet 1-2 TABLET PO Q4H PRN PRN For Mild Pain Prescribed by: GOPAL TATE MD oxyCODONE-Acetaminophen 5-325 mg (oxyCODONE-Acetaminophen 5-325 mg) 1 Each Tablet 1-2 TAB PO Q4H PRN PRN For Pain Prescribed by: GOPAL TATE MD Followup Plan Follow-up plan Patient should call his own PCP on arrival to get follow-up on discharge from SNF. Until then Dr. Ashley, facility provider, will be following Discharge Diet: Heart Healthy Discharge Activity: No restrictions Patient Instructions Patient to go to [facility] with Dr. Ashley following a think it will be there perhaps a week until he is able to ambulate and better care for himself Follow-up with PCP in: Other (call your primary for follow-up to be arranged on discharge from [facility]) Time spent >30min Gopal Tate MD November 17, 2016 13:14
--- NOTE | 2016-11-17 14:05 | NUR ---
Discharge Patient discharged to [facility]. Report called to Vivek. Dressing change. No IV to DC. LORENZO gathered all patient belongings. Patient transferred to [facility] via POV. LORENZO escorted patient out via W/C.
== END 2016-11-17 13:47 | DRG 482 ==
LOC: EDBD 07:11 → SED 07:11 → OSC 10:04
PROVIDERS: ADMIT Internal Medicine; ATTEND Internal Medicine
PROC: 2W6NXZZ Traction of Right Upper Leg (ICD-10-PCS; 2016-11-13)
PROC: 0QS636Z Reposition Right Upper Femur with Intramedullary Internal Fixation Device, Percutaneous Approach (ICD-10-PCS; principal; 2016-11-13 15:00)
DX: S72.141A Displaced intertrochanteric fracture of right femur, initial encounter for closed fracture (principal); S72.044A Nondisplaced fracture of base of neck of right femur, initial encounter for closed fracture; W18.30XA Fall on same level, unspecified, initial encounter; Y93.9 Activity, unspecified; Y92.59 Other trade areas as the place of occurrence of the external cause; Y99.9 Unspecified external cause status; F10.129 Alcohol abuse with intoxication, unspecified; T51.0X1A Toxic effect of ethanol, accidental (unintentional), initial encounter; I48.0 Paroxysmal atrial fibrillation; K22.70 Barrett's esophagus without dysplasia; F17.210 Nicotine dependence, cigarettes, uncomplicated; J44.9 Chronic obstructive pulmonary disease, unspecified; Y90.8 Blood alcohol level of 240 mg/100 ml or more